=== PATIENT | male | born 1955 | race Caucasian/White ===

== ENCOUNTER → 2016-09-19 | Outpatient (CLI) | payer BC, OTHER ==
[~2016-09-19] VITALS: Ht 157.5 cm; Wt 71.1 kg
[~2016-09-19] MED LIST: ALOCRIL5 ML OP; CELEBREX 200 M200 MG PO; CLARITIN10 MG PO; CO Q-1010 MG PO; CONCERTA36 M1 PO; CONCERTA54 M1 PO; DECADRON PO; DEXAMETHASONE 44 M1 PO; FLEXERIL PO; GABAPENTIN 100100 MG PO; NASONEX17 GM NASAL; NEURONTIN 300300 M1 PO; OXYCODONE-ACET1 EAC2 PO; OXYCODONE-ACET1 EACH PO; PRILOSEC20 MG PO; RED YEAST RICE600 MG PO; SENNA LAX8.6 MG PO; TRAMADOL 50 MG50 MG PO; ZADITOR5 M1
--- NOTE | ~2016-09-19 | HPC ---
[facility] [address] [place] [address] PAIN MANAGEMENT CONSULTATION Name: KAYLIVIKTORIA Jeff Room #: REG ZAYDA Archana.#: [id number] Admission: 09/19/16 Attend Phys: Owen Live MD Discharge: Date of : 53 Report #: [id number] THIS REPORT FOR: //name// CC: Chris Live DATE OF SERVICE: 09/19/2016 Followup visit for chronic back pain with radiculopathy, status post L2-L3 fusion. The patient returns to the pain clinic today and is continuing to have pain in his back. It also radiates into the left flank and down into the right hip. He has responded favorably to transforaminal injections around his hardware. His last injection was performed about 3 months ago. We still have not found what I consider the ideal place to inject him. I have been using transforaminal approaches because of unilateral pain. One visit, however, he complained of right-sided pain, another on left. Today, most of his pain is on his left side and seems to emanate from the area around and just below his hardware radiating in a radicular fashion down into the hip. This would be around the L4 distribution into the anterolateral thigh. We also discussed medication at length. He has a history of addiction and so use of opioids is something that we discussed free and openly at each visit. We spent about 10 minutes today discussing addiction and his cautious use of opioids to control pain. He does get relief and I have agreed to provide him with oxycodone 5/325 three tablets a day. This would be a morphine milligram equivalent dose of 22 mg of oxycodone per day. We will continue to monitor closely. Today, his pain is 3, but it can be much more severe with twisting, turning, bending. He has trouble getting up and down out of a car and going up and downstairs. PHYSICAL EXAMINATION: Blood pressure 148/97, heart rate 52, respirations are 16. BMI is 28.7. He has pain across his low back with flexion, extension and rotational movements. He has positive straight leg raising bilaterally, worse on the left, radiating into the anterolateral thigh. Sensation and strength are normal. IMPRESSION: Chronic low back pain, status post lumbar fusion. RECOMMENDATIONS: 1. Transforaminal epidural injection on the left today, L3-L4. 2. Renew medication under terms of our opioid agreement. Safeguarding of all medication was discussed. [facility] [address] [place] [address] PAIN MANAGEMENT CONSULTATION Name: VIKTORIA MILAN Room #: REG CLI [facility]#: [id number] Admission: 09/19/16 Attend Phys: Owen Live MD Discharge: Date of : 53 Report #: [id number] 3. Continue exercises as we have discussed in the past including bicycle exercises when the weather improves. PROCEDURE: He was taken to fluoroscopic suite, placed prone, skin prepped with ChloraPrep. Skin was anesthetized in the left. A 20-gauge Tuohy epidural needle was advanced into the epidural space through the neural foramen at L3-L4. Omnipaque 1 mL demonstrated an epidural spread as well as some spread along the left L4 nerve root. It was then followed by 3 mL of 0.5% lidocaine mixed with 80 mg of triamcinolone. He tolerated the procedure well and was observed for 45 minutes and discharged. Followup visit planned as needed. In addition to the injection and the medication, I did provide him with some information for spinal cord stimulation. He may be a good candidate for that in the future. By: 1700 2149 Owen Live MD /nt
[2016-09-19 11:39] VITALS: BP 148/97
== END ==
LOC: PAIN 06:45
DX: G89.29 Other chronic pain (principal); M54.5 Low back pain; Z98.1 Arthrodesis status

== ENCOUNTER → 2016-12-15 | Outpatient (CLI) | payer BC, OTHER ==
[~2016-12-15] VITALS: Ht 160 cm; Wt 70.9 kg
[2016-12-15 10:05] VITALS: BP 127/82
== END | disposition home or self-care (01) ==
LOC: PAIN 06:37
DX: M54.16 Radiculopathy, lumbar region (principal); G89.29 Other chronic pain; M96.1 Postlaminectomy syndrome, not elsewhere classified; F11.20 Opioid dependence, uncomplicated; Z98.890 Other specified postprocedural states; Z91.040 Latex allergy status

== ENCOUNTER → 2017-02-13 | Outpatient (CLI) | payer BC, OTHER ==
[~2017-02-13] VITALS: Ht 160 cm; Wt 69.8 kg
[~2017-02-13] MED LIST changes: +CELEBREX 200 M200 M1 PO
--- NOTE | ~2017-02-13 | HPC ---
[facility] [place] [place] [address] PAIN MANAGEMENT CONSULTATION Name: KAYLIVIKTORIA Jeff Room #: REG ZAYDA Ish.#: [id number] Admission: 02/13/17 Attend Phys: Owen Live MD Discharge: Date of : 53 Report #: [id number] THIS REPORT FOR: //name// CC: LEILA Live DATE OF SERVICE: 02/13/2017 Followup visit for lumbar radiculopathy. Status post lumbar fusion. The patient returns to pain clinic today and would like transforaminal injection. He responded nicely to these injections. I have been providing him injections just below the level of his fusion at L3 using a transforaminal approach. Medication has spread nicely throughout the lateral recess on that side and helps with the pain as it is low back and radiates into his legs and also into the right flank. He is under an opioid agreement under strict terms with CDC guidelines. His medication is not duo today, but I did go ahead and provide him with this for an 8-week release prescription while he does not need to be seen back in the pain clinic for 3 months following the injection. He has done well with this combination and we carefully prescribed his medicines with his history of addictions. Today, he reports his pain score is 6-7. He has been very active on a vacation in [place] for 28 days, riding his bike up to 17 out of the 21 days. Pain is across his back, radiates through his left buttock; described as a tingling, sharp, stabbing Pain. It is worse in the morning. It is also aided by movement and stretching. PHYSICAL EXAMINATION: This is a sharp, 61-year-old pleasant, alert and oriented. Blood pressure 123/92, heart rate 68, respirations 27, walks with antalgic features. He has some slight curvature of the spine noted. There is tenderness over the scar. Pain radiates into the left flank along the iliac crest. IMPRESSION: 1. Chronic low back pain, post-laminectomy with fusion. 2. Lumbar radiculopathy. 3. Management of high risk medications under terms of an opioid agreement. PROCEDURE: Epidural steroid injection under fluoroscopic ____ guidance using a transforaminal approach at L3-L4. PROCEDURE NOTE: He was taken to fluoroscopic suite. [place] [address] PAIN MANAGEMENT CONSULTATION Name: VIKTROIA MILAN Room #: REG ZAYDA Colón#: [id number] Admission: 02/13/17 Attend Phys: Owen Live MD Discharge: Date of : 53 Report #: [id number] prepped with ChloraPrep. Skin anesthetized over L3-L4 neural foramen to the left of midline. Using triplanar fluoroscopic views, I advanced needle into the epidural space. No blood or CSF was aspirated. 1 mL of Omnipaque injected with excellent spread of dye observed into the epidural space. This was then followed by 3 mL of 0.5% lidocaine mixed with 80 mg of triamcinolone. He tolerated the procedure well. Pain was reduced to about 2 at discharge, about 75% improvement. He was discharged with a followup visit scheduled in 3 months for medication. By: [id number] Owen Live MD /nt
[2017-02-13 10:34] VITALS: BP 123/92
== END | disposition home or self-care (01) ==
LOC: PAIN 07:04
DX: M54.16 Radiculopathy, lumbar region (principal); M96.1 Postlaminectomy syndrome, not elsewhere classified

== ENCOUNTER → 2017-03-06 | Outpatient (CLI) | payer BC, OTHER ==
[~2017-03-06] VITALS: Ht 160 cm; Wt 71.0 kg
--- NOTE | ~2017-03-06 | HPC ---
[facility] [address] [place] [address] PAIN MANAGEMENT CONSULTATION Name: VIKTORIA MILAN Jeff [facility] [id number] Admission: 03/06/17 Attend Phys: Owen Live MD Discharge: Date of : 53 Report #: [id number] THIS REPORT FOR: //name// CC: Chris Live DATE OF REGISTRATION: 03/06/2017 Followup visit for lumbar radiculopathy and scoliosis, status post fusion of the lumbar spine. The patient returns to pain clinic today for further discussion regarding ongoing pain in the left lumbosacral region. He did not respond as favorably to his last epidural injection. Too early to repeat another injection. PHYSICAL EXAMINATION: He has localized tenderness along the scar from his previous surgery, pain radiates to abdomen and flank and into the left buttock. It does not radiate further. Straight leg raising is performed without difficulty. He appears fit and walks without antalgic features today. IMPRESSION: 1. Chronic low back pain, post-laminectomy with fusion. 2. Lumbar radiculopathy on the left L3-L4. 3. Management of high risk medication under terms of an opioid agreement. PLAN: He is here for consultation only today. I think his pain may have been exacerbated a bit by activities he was doing around the yard. 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 He is having to do more around the house. I placed him on Celebrex 200 mg once daily and I want him to take it every single day for the next 7 days as long as he can tolerate it and we will see if that helps with the inflammatory component. Much of this may be arthropathy. Follow up as needed. By: 1713 0557 Owen Live MD /nt
[2017-03-06 14:49] VITALS: BP 134/77
== END | disposition home or self-care (01) ==
LOC: PAIN 07:27
DX: M54.16 Radiculopathy, lumbar region (principal); G89.29 Other chronic pain; Z79.891 Long term (current) use of opiate analgesic; Z98.890 Other specified postprocedural states; Z91.040 Latex allergy status

== ENCOUNTER → 2017-07-27 | Outpatient (CLI) | payer BC, OTHER ==
[~2017-07-27] VITALS: Ht 160 cm; Wt 72.8 kg
[~2017-07-27] MED LIST changes: +BAYER BACK & B1 EACH PO; +COZAAR 50 MG TA50 M2 PO; +OXYCONTIN10 M1 PO; +PERCOCET PO; +SENOKOT-S TABL1 EACH PO
--- NOTE | ~2017-07-27 | HPC ---
[facility] [address] [place] [address] PAIN MANAGEMENT CONSULTATION Name: KAYLIVIKTORIA Jeff Room #: REG ZAYDA Archana.#: [id number] Admission: 07/27/17 Attend Phys: Owen Live MD Discharge: Date of : 53 Report #: [id number] THIS REPORT FOR: //name// CC: Chris Live DATE OF SERVICE: 07/27/2017 REASON FOR VISIT: Followup visit for chronic low back pain with radiculopathy, post-laminectomy syndrome with fusion. HISTORY OF PRESENT ILLNESS: The patient returns to pain clinic today for an epidural injection. I also provide him with medication under terms of written agreement. He has followed by Dr. Miranda on 05/22/2017 and received 3 months of medication, which will carry him through the end of this month. I provided him with additional prescriptions to allow him to return no earlier than 3 months if he does not need another injection. Continues to have pain that is radicular but radiates mostly to the left. He has a rotational scoliosis. Pain relief is generally pretty good for the first month or two after his injection and then gradually worsens necessitating an injection. He is not anxious to proceed with further surgery. Medications that he uses include Percocet 5/325 up to 3 times a day, taken for severe breakthrough pain. He has no significant side effects. Manages his medicine carefully. There was a long discussion through the chart, but his past use of substance with abuse and we are monitoring carefully. He has been very forthright and I believe that we were using medication appropriately under the circumstances. All medications reviewed and reconciled. He is on no blood thinners. ALLERGIES: To LATEX. PHYSICAL EXAMINATION: VITAL SIGNS: He is 5 feet 3 inches, 160 pounds with a BMI of 28.4. He appears fit. His blood pressure is 131/94, heart rate 86 and respirations 16. Pain intensity is 6-7/10. MUSCULOSKELETAL: Moves from sitting to standing position, ambulates easily. Curvature in his spine is easily noted to casual observe her. There is tenderness across the scar. Tenderness to the left of midline and extends down in a radicular pattern into the buttock. Straight leg raising is negative. Sensation is intact. FUNCTIONAL ASSESSMENT TOOL SCORES: 36/70. [address] [address] PAIN MANAGEMENT CONSULTATION Name: VIKTORIA MILAN Room #: REG MAKAYLALouie Colón#: [id number] Admission: 07/27/17 Attend Phys: Owen Live MD Discharge: Date of : 53 Report #: [id number] RISK ASSESSMENT TOOL: Provided his high risk of 12. IMPRESSION: 1. Chronic low back pain, post-laminectomy and fusion. 2. Lumbar radiculopathy. 3. Management of high risk medications under terms of written opioid agreement. PROCEDURE: He was taken to fluoroscopic suite for treatment where he was placed prone, skin was prepped with ChloraPrep. Skin was anesthetized to left of midline. A 22-gauge Tuohy epidural needle was gently advanced into the neural foramen at the L3-L4, just below its fusion. No blood or CSF was aspirated. A 1 mL of Omnipaque was injected and spread of dye was seen first along the nerve root and then into the epidural space was followed 5 x 3 mL of 0.5% lidocaine mixed with 80 mg of triamcinolone. He tolerated the procedure well, was observed for 45 minutes and discharged. Followup visit planned as needed in the future. <ELECTRONICALLY SIGNED> By: Owen Live MD 08/16/17 1640 [id number] [id number] Owen Live MD /nt
[2017-07-27 10:48] VITALS: BP 131/94
== END | disposition home or self-care (01) ==
LOC: PAIN 06:54
DX: M54.16 Radiculopathy, lumbar region (principal); M96.1 Postlaminectomy syndrome, not elsewhere classified; G89.29 Other chronic pain; Z88.8 Allergy status to other drugs, medicaments and biological substances

== ENCOUNTER → 2017-12-11 | Outpatient (CLI) | payer BC, OTHER ==
[~2017-12-11] VITALS: Ht 160 cm; Wt 70.3 kg
[~2017-12-11] MED LIST changes: -COZAAR 50 MG TA50 M2 PO; -OXYCONTIN10 M1 PO; -PERCOCET PO
--- NOTE | ~2017-12-11 | H ---
[facility] [place] [address] HISTORY AND PHYSICAL Name: KAYLIVIKTORIA Jeff Room #: [facility].#: [id number] Admission: 12/11/17 Attend Phys: Owen Live MD Discharge: Date of : 53 Report #: [id number] THIS REPORT FOR: //name// CC: Chris Live DATE OF SERVICE: 12/11/2017 REASON FOR VISIT: Followup visit for lumbar radiculopathy. HISTORY OF PRESENT ILLNESS: The patient returns to pain clinic today for repeat transforaminal epidural injection. He has been harder to get into the neural foramen below the level of his fusion. He has a trip coming up to [place] in the next 2-3 weeks. He will see his surgeon when he is there. He has continued scoliosis and pain that radiates into the left hip. He does not have much pain radiating down into his leg. It is possible that some of this may be spondylitic. Continues on Percocet 5/325 taking it 3 times a day for breakthrough pain. 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 PHYSICAL EXAMINATION: GENERAL: Moves from sitting to standing position independently. He is lean. VITAL SIGNS: Blood pressure 146/78, heart rate 55. MUSCULOSKELETAL: He has notable scoliosis of the lumbar spine and there is a scar from his previous L2-L3 fusion. Localized tenderness that radiates through the hip. Straight leg raising mildly reproduces pain into the hip. IMPRESSION: 1. Low back pain with radiculopathy and scoliosis. 2. Post-laminectomy syndrome and also with fusions, L2-L3. 3. Management of high risk medication. He does need medication today, only the injection. PROCEDURE: Lumbar transforaminal epidural injection, L3-L4 under fluoroscopic guidance. DESCRIPTION OF PROCEDURE: He was taken to fluoroscopic suite, placed prone, skin prepped with ChloraPrep. Skin anesthetized over the left neural foramen. A 22-gauge Tuohy epidural needle was advanced into the neural foramen. Multiple attempts were required until we got some spread within the epidural space. There were no lumbar or radicular paresthesias during needle placement. Injected 0.25 mL of Omnipaque to determine good spread and follow that with [address] [address] HISTORY AND PHYSICAL Name: KAYLIVIKTORIA Jeff Room #: REG [facility].#: [id number] Admission: 12/11/17 Attend Phys: Owen Live MD Discharge: Date of : 53 Report #: [id number] of 0.5% lidocaine mixed with 80 mg of triamcinolone. He tolerated the procedure well, was discharged. Follow up as needed. By: 1315 1333 Owen Live MD /nt
[2017-12-11 11:16] VITALS: BP 146/78
== END | disposition home or self-care (01) ==
LOC: PAIN 06:39
DX: M54.16 Radiculopathy, lumbar region (principal); M96.1 Postlaminectomy syndrome, not elsewhere classified; Z98.890 Other specified postprocedural states; Z79.899 Other long term (current) drug therapy; Z91.040 Latex allergy status; Z79.82 Long term (current) use of aspirin

== ENCOUNTER → 2018-04-16 | Outpatient (CLI) | payer BC, OTHER ==
[~2018-04-16] VITALS: Ht 160 cm; Wt 69.9 kg
[~2018-04-16] MED LIST changes: +COZAAR 50 MG TA50 M2 PO; +OXYCONTIN10 M1 PO; +PERCOCET PO
--- NOTE | ~2018-04-16 | HPC ---
[facility] [address] [place] [address] PAIN MANAGEMENT CONSULTATION Name: VIKTORIA MILAN Jeff Room #: REG [facility] Tash.#: [id number] Admission: 04/16/18 Attend Phys: Jillian Child Discharge: Date of : 53 Report #: [id number] THIS REPORT FOR: //name// CC: Jillian Live DATE OF SERVICE: 04/16/2018 REASON FOR VISIT: Followup today visit for low back pain, post-laminectomy and fusion. HISTORY OF PRESENT ILLNESS: The patient returns today for refill of his medication management. He tells me that the last injection that he had was helpful, but his pain has been returning, it has been a distraction he calls. He did not rate his pain score other than a distraction. He tells me it is in his lower back, left buttock, radiating into his left hip, not down his legs. Legs feel strong. He tells me that it feels like he has congestion in his lower back. He is not sleeping well and therefore, using 3-1/2 of his Percocet 5/325 a day, which is a slight increase. He did have a recent MRI in [place], [place] and has seen Dr. Banks within the last few weeks. According to the patient, Dr. Banks did discuss a very major surgery with him. The patient was hopeful that Dr. Live had spoken with Dr. Banks, but it has not happened at present time. Dr. Live did come and see the patient also today. We have no reports of the MRI that the patient did have in [place], [place]. The patient tells me he rides a bike daily. He does Pilates. He works out at home. He does walk, but the things that aggravate him the most are doing dishes or reaching into his closet, even sometimes sitting, just having to change positions frequently. ALLERGIES: LATEX. CURRENT LIST OF MEDICATIONS: Percocet 5/325, losartan, aspirin, Senokot, ____ Concerta, Nasonex and Claritin. PQRS: 1. History of arthritis in his upper and lower extremities. Denies rheumatoid arthritis. 2. Height is 5 feet 3 inches, weight 154. BMI is 27.3. 3. Vital signs: Blood pressure is 143/83, pulse is 53, oxygen sat is 97%. 4. Pain intensity: He states it as a distraction, no number given. 5. Fall risk: Denies dizziness, does not need help walking or standing and has not fallen in the last 3 months. 6. Denies blood thinners. 7. No History of hypertension. [facility] [address] [place] [address] PAIN MANAGEMENT CONSULTATION Name: VIKTORIA MILAN Room #: REG ZAYDA Colón#: [id number] Admission: 04/16/18 Attend Phys: Jillian Child Discharge: Date of : 53 Report #: [id number] 8. Opioid therapy greater than 6 weeks and opioid contract is on the chart. 9. He is a high risk for his risk assessment tool. 10. His functional assessment is 36/70. 11. No recreational drug use. He is not a smoker and is not drinking alcohol. We checked [place] and [place] PDMP. [place] is appropriate for his fills, slightly early today. The patient tells us he is taking 3-1/2 pills a day instead of 3, fills only from Dr. Owen [facility]. The patient does tell me he safeguards all of his medicines. PHYSICAL EXAMINATION: The patient is alert and oriented without signs of overmedication. He has mild tenderness in his lower back, especially on the right lower side there is a scar from previous fusion. Straight leg raising today is mild positively on the left. Strength is 5/5 to be judged bilaterally. Slight scoliotic changes are noted on his spine. He does have some mild pain with flexion and extension. The patient does move from standing to sitting without any difficulty. IMPRESSION: 1. Low back pain with radiculopathy and scoliosis. 2. Post-laminectomy with fusion. 3. Management of high risk medications under opioid written agreement. PLAN: 1. We reviewed his opioid agreement today and the CDC guidelines. The patient states he is taking 3-1/2 Percocet 5/325 a day. This is well below the MME guidelines at 22 a day, though the patient states he is having increased discomfort and pressure, congested area in his lower back. He was hopeful for an increase of his Percocet to possibly 105 pills a month from 90. Dr. Owen Live consulted with the patient and myself. We have elected to start a long-acting opioid, hopeful to give the patient better pain control, so he is able to sleep better at night and function better during the day. Discussed many options of medicines, but OxyContin 10 mg 1 in the morning and 1 in the evening will be started. The patient will be able to have Percocet 5/325 1-2 5/325 pills if needed throughout the day for additional breakthrough pain. The patient was agreeable with this plan. The patient will try this medicine for 1 month. If this is helpful, we will give him followup prescriptions for #2 and #3 numbers and be seen again in May. 2. The patient is going to be leaving for a trip in [place] in June and would like an epidural prior to that in late May. It was discussed that Dr. Live will repeat an injection in May, the patient is to schedule that at his convenience. 3. Dr. Live did discuss spinal cord stimulation versus intrathecal pump therapy. I think that the patient may be beneficial to have an intrathecal pump placed, but at this time, we will try the long-acting OxyContin to see if that gives the patient better pain control and relief on a more steady state [address] [address] PAIN MANAGEMENT CONSULTATION Name: VIKTORIA MILAN Room #: REG ZAYDA Colón#: [id number] Admission: 04/16/18 Attend Phys: Jillian Child Discharge: Date of : 53 Report #: [id number] throughout the day. The patient is agreeable with this plan. Uncertain if he wants to have any major surgeries done at this time. 4. The patient will follow up in May as stated above for an injection and refill of medications. The patient was seen in collaboration with Dr. Owen Live today. <ELECTRONICALLY SIGNED> By: Jillian Child 04/17/18 0728 1547 0010 Jillian Child /nt
[2018-04-16 14:47] VITALS: BP 143/83
== END ==
LOC: PAIN 06:19
DX: M54.16 Radiculopathy, lumbar region (principal); M41.86 Other forms of scoliosis, lumbar region; M96.1 Postlaminectomy syndrome, not elsewhere classified; M43.26 Fusion of spine, lumbar region; Z79.899 Other long term (current) drug therapy; Z79.891 Long term (current) use of opiate analgesic

== ENCOUNTER → 2018-06-15 | Outpatient (CLI) | payer BC, OTHER ==
[~2018-06-15] VITALS: Ht 160 cm; Wt 69.9 kg
[~2018-06-15] MED LIST changes: +CRESTOR20 MG PO
[2018-06-15 12:50] VITALS: BP 143/86
--- NOTE | 2018-06-15 12:56 | NUR ---
Pain Clinic Assessment: 1. History of Osteoarthritis: Right Lower Extremity Right Upper Extremity History of Rheumatoid Arthritis: Not Applicable 2. Height: 5 ft. 3 in. 160.0 cm. Weight: 154.0 lb. oz. 69.854 kg. Patient's BMI: 27.3 3. Vital Signs: BP: 143/86 Pulse: 54 Resp: 16 Temp: 02 Sat: 98 ECG Mon: 4. Pain Intensity: 6 5. Fall Risk: Dizziness: N Needs help standing or walking: N Fallen in the last 3 months: N Fall risk comments: 6. Patient on Blood Thinner: None 7. History of Hypertension: N 8. Opioid Therapy greater than 6 weeks: Y Opiate Contract Signed: 11/30/15 9. Risk Assessment Tool Provided: HIGH RISK 12 10. Functional Assessment Tool: 11. Recreational Drug Use: Never Drug Type: Tobacco Use: Never Smoker Tobacco Type: Amount or Packs/day: How Many Years: Alcohol Use: No Frequency: Quant:
--- NOTE | 2018-06-20 11:18 | HPC ---
[facility] [place] [address] PAIN MANAGEMENT CONSULTATION Name: KAYLIVIKTORIA Jeff Room #: REG ZAYDA [facility].#: [id number] Admission: 06/15/18 Attend Phys: Owen Live MD Discharge: Date of : 53 Report #: [id number] THIS REPORT FOR: //name// CC: Chris Live DATE OF SERVICE: 06/15/2018 HISTORY OF PRESENT ILLNESS: Followup visit for ongoing left lumbar radiculopathy status post laminectomy and fusion. The patient returns to the pain clinic today for a left transforaminal epidural injection. I have previously injected him at L3-L4 just below the level of his fusion. Found that neural foramen difficult to enter. I told him at last visit that we would try to provide an L4-L5 transforaminal injection on the left when we repeat the injection, now he is a higher amount of IM to extend up into the scar tissue as well as cover the L4 and L5 nerve roots below the level of fusion. He is here today for that injection. He has an upcoming trip to [place] for a safari! MEDICATIONS: Reviewed. He is on OxyContin 10 mg b.i.d. and oxycodone 5/325 b.i.d. as needed for breakthrough pain. These are helpful and effective. His use of opioid medications is well documented through his record and will keep a close eye on those. I provided him with medications for 2 weeks. 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 PHYSICAL EXAMINATION: GENERAL: Today, he is pleasant, alert and oriented. VITAL SIGNS: Blood pressure is 143/86, heart rate 54. MUSCULOSKELETAL: He moves easily from sitting to standing position. His gait is stable. He is not a fall risk. He has minimum pain with flexion and extension. Straight leg raising does reproduce pain into the leg following an L4-L5 distribution. Pain intensity is a 6-7/10. Sensation is intact. Scar from previous laminectomy is noted in the mid lumbar spine to lower thoracic spine. IMPRESSION: 1. Chronic low back pain with radiculopathy on the left. Rotational scoliosis. 2. Failed back syndrome, post-laminectomy syndrome. 3. Management of high risk medications under an opioid agreement. PLAN: Procedure today is left L4-L5 transforaminal epidural injection under fluoroscopic guidance. [address] [address] PAIN MANAGEMENT CONSULTATION Name: KAYLIVIKTORIA Jeff Room #: REG CLI [facility]#: [id number] Admission: 06/15/18 Attend Phys: Owen Live MD Discharge: Date of : 53 Report #: [id number] DESCRIPTION OF PROCEDURE: He was taken to fluoroscopic suite for the procedure, placed prone, skin prepped with ChloraPrep. Skin anesthetized over the L4-L5 neural foramen on the left. Using triplanar fluoroscopic views, I carefully advanced the needle in the neural foramen and 1 mL of Omnipaque injected to demonstrate a good epidural spread along with some spread along the L4 nerve root. I then injected a total of 6 mL of 0.5% lidocaine mixed with 80 mg of triamcinolone. He tolerated the procedure well. The additional volume seemed to cover a broader dermatome. His pain score remained, however, 4/10, at discharge. We will see how he does on his safari. One additional prescription was written for his pain medication to extend him to 8 weeks and I will see him back in the pain clinic in July after his trip. <ELECTRONICALLY SIGNED> By: Owen Live MD 06/20/18 1118 [id number] Owen Live MD /nt
== END | disposition home or self-care (01) ==
LOC: PAIN 09:58
DX: M54.16 Radiculopathy, lumbar region (principal); G89.29 Other chronic pain; M96.1 Postlaminectomy syndrome, not elsewhere classified; Z98.1 Arthrodesis status; Z79.899 Other long term (current) drug therapy; Z98.890 Other specified postprocedural states; Z88.8 Allergy status to other drugs, medicaments and biological substances; Z91.040 Latex allergy status; Z79.82 Long term (current) use of aspirin

== ENCOUNTER → 2018-07-24 | Outpatient (CLI) | payer BC, OTHER ==
[~2018-07-24] VITALS: Ht 154.9 cm; Wt 68.5 kg
[~2018-07-24] MED LIST changes: +OXYCODONE HCL E10 MG PO
[2018-07-24 09:34] VITALS: BP 143/86
--- NOTE | 2018-07-24 09:40 | NUR ---
Pain Clinic Assessment: 1. History of Osteoarthritis: Right Lower Extremity Right Upper Extremity RIGHT KNEE RIGHT HAND History of Rheumatoid Arthritis: Not Applicable 2. Height: 5 ft. 1 in. 154.9 cm. Weight: 151.0 lb. oz. 68.493 kg. Patient's BMI: 28.5 3. Vital Signs: BP: 143/86 Pulse: 67 Resp: 16 Temp: 02 Sat: 97 ECG Mon: 4. Pain Intensity: 6-AVG,3-NOW SITTING 5. Fall Risk: Dizziness: N Needs help standing or walking: N Fallen in the last 3 months: N Fall risk comments: 6. Patient on Blood Thinner: None 7. History of Hypertension: N 8. Opioid Therapy greater than 6 weeks: Y Opiate Contract Signed: 11/30/15 9. Risk Assessment Tool Provided: HIGH RISK 12 10. Functional Assessment Tool: 11. Recreational Drug Use: Never Drug Type: Tobacco Use: Never Smoker Tobacco Type: Amount or Packs/day: How Many Years: Alcohol Use: No Frequency: Quant:
--- NOTE | 2018-07-25 07:19 | HPC ---
[facility] [address] [place] [address] PAIN MANAGEMENT CONSULTATION Name: KAYLIVIKTORIA Jeff Room #: REG ZAYDA [facility].#: [id number] Admission: 07/24/18 Attend Phys: Jillian Child Discharge: Date of : 53 Report #: [id number] THIS REPORT FOR: //name// CC: Jillian Page DATE OF SERVICE: 07/24/2018 CHIEF COMPLAINT: Low back pain, post-laminectomy and fusion. HISTORY OF PRESENT ILLNESS: The patient returns to the pain clinic today for refill of his medication. He tells me that since he has switched to OxyContin 10 mg from his short-acting he tells me that his overall pain relief is significantly better. He tells me that he has a pain score average of 3 currently and 6 is his average daily pain. He tells me his pain is mostly when he is doing lots of activity or sitting in one position for too long or becoming too tired. He says stretching and activity make it better in his lower back, left buttock and left hip. He did have a transforaminal injection in May from Dr. Owen Live. He tells me he was at least 50% better for at least 2 weeks maybe slightly longer. He was able to go on a safari in [facility] and be very active, but it did require lots of sitting. He said so maybe overall it was slightly higher than 50%, but unsure since he was so active, but he said it gave him much better relief than at previous injections at the higher level where he had been getting them. The patient would like a refill of his medications today. ALLERGIES: LATEX. CURRENT MEDICATIONS: Oxycodone 5/325 half to one tablet twice a day, OxyContin 10 mg twice a day, Crestor 20 mg daily, losartan 50 mg daily, Grisel Back and Body caplet daily, Zaditor drops daily, Nasonex as needed and Claritin daily. PQRS: 1. He has a history of osteoarthritis in his upper and lower extremities. Denies rheumatoid arthritis. 2. Height is 5 feet 3 inches, weight is 151 and BMI is 27. Vital signs: 143/86, pulse is 67, respirations 16 and oxygen sat is 97%. 3. Pain score is an average of 6/10. 4. Fall risk. He denies dizziness. Does not need help walking or standing. He has not fallen in the last 3 months. 5. The patient is not on any blood thinner. He does not have a history of hypertension. 6. Opiate therapy is greater than 6 weeks; therefore, an opiate signed contract is on the chart. His risk assessment tool is high. His functional assessment is 36/70. Recreational drug use, he denies. He is not a smoker and does not drink alcohol. Did check the prescription monitoring system[place] [address] PAIN MANAGEMENT CONSULTATION Name: VIKTORIA MILAN Room #: REG [facility] Katarzyna#: [id number] Admission: 07/24/18 Attend Phys: Jillian Child Discharge: Date of : 53 Report #: [id number] filling appropriately from Dr. Owen Live with his current medications at one pharmacy. There is not a drug screen I noticed on the chart in the last several years. I did put a note for it to be done in the next visit. The patient tells me he does safeguard his medications. PHYSICAL EXAMINATION: GENERAL: This is a well-developed, well-nourished, well-hydrated 62-year-old gentleman who appears his stated age. He is alert and orientated. HEENT: Normocephalic and atraumatic. Extraocular eye muscles are intact. Mucous membranes are moist. MUSCULOSKELETAL: He easily moves from sitting to standing. His gait is stable. He has lower muscle strength judged to be 5/5 symmetrical in both lower extremities. We reviewed the fact that opiate medications are being used to provide analgesia adequate to support activities of daily living, not attempting to achieve a specific pain score on the 0-10 Visual Analog Scale. The current opiate medications are providing sufficient analgesia to allow the patient to participate in activities of daily living. The patient is not exhibiting any aberrant behavior suggestive of drug diversion. The patient is not having any adverse reactions to medications. The patient is not suffering from daytime somnolence or mental acuity changes. The patient is managing opiate-induced constipation with appropriate [id number] agents and dietary considerations. The patient was counseled on concern for caution with operating a motor vehicle while using opiate medications. A physical exam was performed and the patient's functional status was evaluated. All patients with back pain were advised against the bed rest greater than 4 days and were advised to return to normal activities. Pain score assessment was noted and the treatment plan was reviewed with the patient. All current medications, both prescribed and OTC were reviewed and reconciled on the electronic medical record. Tobacco screening was accomplished and smoking cessation was advised when indicated. BMI was noted and diet/exercise modification was recommended for all patients following outside normal parameters. I reviewed with the patient today their responsibilities to safeguard prescription medications, reviewed their responsibility to utilize medications only as prescribed by the physician. They are to seek and receive pain medications only from 1 physician group ( [facility]). They are to use 1 pharmacy and keep the clinic informed if they change pharmacies. Their responsibilities include making followup visits in a timely fashion and to avoid abrupt discontinuation of medication usage. Their responsibilities further include bringing their medications (bottles from the pharmacy with residual pills) to the visit for possible confirmation of pill counts and the patient understands it is their responsibility to submit to random drug screens to [address] [address] PAIN MANAGEMENT CONSULTATION Name: KAYLIVIKTORIA Jeff Room #: REG ZAYDA [facility].#: [id number] Admission: 07/24/18 Attend Phys: Jillian Child Discharge: Date of : 53 Report #: [id number] ensure both that the medications prescribed are present, and that no other controlled substances are present. All prescriptions provided today were generated electronically. IMPRESSION: 1. Chronic low back pain with radiculopathy. 2. Rotational scoliosis. 3. Failed back syndrome, post-laminectomy syndrome. 4. Management of high risk medications under terms of written opioid agreement. PLAN: 1. We discussed treatment options with the patient today. He tells me that overall the OxyContin has been helping him with his pain and refills were given today of his OxyContin 10 mg, #60 to be filled today, 4 and 8 week and second medication oxycodone 5/325 the patient takes twice a day, quantity 60 to fill today, 4 and 8 week: 2. The patient will return for followup visit in 3 months for medication management or if not sooner for injection if needed by Dr. Owen Live. The patient was seen today under the direction and collaboration of Dr. Behzad Miranda. <ELECTRONICALLY SIGNED> By: Jillian Cihld 07/25/18 07 1009 56 Jillian Child /nt
== END ==
LOC: PAIN 07-23 13:54
DX: M54.16 Radiculopathy, lumbar region (principal); M41.86 Other forms of scoliosis, lumbar region; Z79.891 Long term (current) use of opiate analgesic; Z79.899 Other long term (current) drug therapy

== ENCOUNTER → 2018-11-05 | Outpatient (CLI) | payer BC, OTHER ==
[~2018-11-05] VITALS: Ht 154.9 cm; Wt 69.1 kg
[~2018-11-05] MED LIST changes: +INDERAL 20 MG T20 M1 PO; +PHENERGAN 25 MG25 M1
[2018-11-05 10:34] VITALS: BP 116/76
--- NOTE | 2018-11-05 11:02 | NUR ---
Pain Clinic Assessment: 1. History of Osteoarthritis: Right Lower Extremity Right Upper Extremity RIGHT KNEE RIGHT HAND History of Rheumatoid Arthritis: Not Applicable 2. Height: 5 ft. 1 in. 154.9 cm. Weight: 152.4 lb. oz. 69.128 kg. Patient's BMI: 28.8 3. Vital Signs: BP: 116/76 Pulse: 57 Resp: 16 Temp: 02 Sat: 98 ECG Mon: 4. Pain Intensity: 4 5. Fall Risk: Dizziness: Y Needs help standing or walking: N Fallen in the last 3 months: N Fall risk comments: 6. Patient on Blood Thinner: None 7. History of Hypertension: N 8. Opioid Therapy greater than 6 weeks: Y Opiate Contract Signed: 11/30/15 9. Risk Assessment Tool Provided: HIGH RISK 12 10. Functional Assessment Tool: 11. Recreational Drug Use: Never Drug Type: Tobacco Use: Never Smoker Tobacco Type: Amount or Packs/day: How Many Years: Alcohol Use: No Frequency: Quant:
--- NOTE | 2018-11-06 09:03 | HPC ---
[facility] [address] [place] [address] PAIN MANAGEMENT CONSULTATION Name: KAYLIVIKTORIA Jeff [id number] Admission: 11/05/18 ������������������ Attend Phys: Jillian Child Discharge: ������������������ Date of : 53 Report #: [id number] THIS REPORT FOR: //name// CC: Jillian Child Chris Palmerp DATE OF SERVICE: 11/05/2018 CHIEF COMPLAINT: Low back pain, post-laminectomy with fusion. HISTORY OF PRESENT ILLNESS: This is a pleasant 62-year-old gentleman who returns to the Pain Clinic today for refill of his medications. He tells me that his pain score is a 4 out of 10, doing fairly well on his current medication regimen. He tells me that he has some pain in his buttock that does radiate into his left hip today as well as his ongoing low back pain. He tells me that it is a sharp, throbbing, tingly feeling that is worse with activity or becoming too tired. His medications are very helpful as well as stretching. He denies any problems with constipation or daytime sleepiness. The patient tells me he has been having some ongoing vertigo issues that have been ongoing for about the last month. He has seen an ENT doctor and ruled out any problems there. He is going to have an MRI of his brain next week and then hopefully see a neurologist. He has adjusted some of his medications, added propranolol and some Phenergan with this nausea that he has from the vertigo, which ultimately does cause the headache. He tells me he had this problem about 12 years ago and then again about 8 years ago. It did resolve over time within a month or two and the patient feels that will happen again that he would like to know the cause of this. The patient tells me that he is going to go to [place] in December. He was wanting to have another epidural from Dr. Live prior to that trip. He tells me he had an injection last year before he went to [facility] and it was very helpful and aiding him to be more active on his vacation. The patient tells me he knows he will be hiking and biking and thinks that an injection would be beneficial. ALLERGIES: ADHESIVE AND LATEX. CURRENT MEDICATIONS: Propranolol 20 mg daily, promethazine p.r.n., oxycodone 5/325 1-2 tablets a day, OxyContin 10 mg b.i.d., Crestor 20 mg weekly, Cozaar 50 mg daily, Grisel Back and Body caplets daily, Zaditor drops daily, Nasonex as needed and Claritin daily. PQRS: 1. He has a history of osteoarthritis of his upper and lower extremities as well as in his lumbar spine. Denies any rheumatoid arthritis. 2. Height is 5 feet 1 inch, weight is 152, BMI is 28[place] [address] PAIN MANAGEMENT CONSULTATION Name: VIKTORIA MILAN Room #: REG [facility]#: [id number] Admission: 11/05/18 ������������������ Attend Phys: Jillian Child Discharge: ������������������ Date of : 53 Report #: [id number] 3. Vital signs: 116/76, pulse is 57, respirations 16, and oxygen sat is 98. 4. Pain score is 4/10. 5. Has vertigo issues, does not need help walking or standing, has not fallen in the last 3 months. 6. The patient is not on any blood thinners. He does not have a history of hypertension. 7. Opioid therapy is greater than 6 weeks. Therefore, an opioid signed contract is on the chart. His risk assessment tool is high. His functional assessment is 36/70. 8. Recreational drug use, he denies. He is not a smoker and does not drink alcohol. We did check the prescription monitoring system. The patient is filling appropriately for his medication and is due for his meds today. There is a drug screen in the past on his chart and we will check one in the future. PHYSICAL EXAMINATION: GENERAL: This is a well-developed, well-nourished, well-hydrated 62-year-old gentleman, who appears his stated age, placing his current pain score at 4/10 today. HEENT: Normocephalic, atraumatic. Extraocular eye muscles are intact. Mucous membranes are moist. MUSCULOSKELETAL: He moves from sitting to standing without difficulty. His gait is stable. Straight leg raising reproduces pain following the L4-L5 distribution. Sensation is intact. He has a scar that is present from his previous laminectomy in his lumbar spine. His lower extremity strength judged to be 5/5 in all major muscle groups. We reviewed the fact that opiate medications are being used to provide analgesia adequate to support activities of daily living, not attempting to achieve a specific pain score on the 0-10 Visual Analog Scale. The current opiate medications are providing sufficient analgesia to allow the patient to participate in activities of daily living. The patient is not exhibiting any aberrant behavior suggestive of drug diversion. The patient is not having any adverse reactions to medications. The patient is not suffering from daytime somnolence or mental acuity changes. The patient is managing opiate-induced constipation with appropriate kglt-aaf-dfwqybm agents and dietary considerations. The patient was counseled on concern for caution with operating a motor vehicle while using opiate medications. A physical exam was performed and the patient's functional status was evaluated. All patients with back pain were advised against the bed rest greater than 4 days and were advised to return to normal activities. Pain score assessment was noted and the treatment plan was reviewed with the patient. All current medications, both prescribed and OTC were reviewed and reconciled on the electronic medical record. Tobacco screening was accomplished and smoking [facility] [address] [place] [address] PAIN MANAGEMENT CONSULTATION Name: VIKTORIA MILAN Room #: REG [facility]#: [id number] Admission: 11/05/18 ������������������ Attend Phys: Jillian Child Discharge: ������������������ Date of : 53 Report #: [id number] cessation was advised when indicated. BMI was noted and diet/exercise modification was recommended for all patients following outside normal parameters. I reviewed with the patient today their responsibilities to safeguard prescription medications, reviewed their responsibility to utilize medications only as prescribed by the physician. They are to seek and receive pain medications only from 1 physician group ( [facility]). They are to use 1 pharmacy and keep the clinic informed if they change pharmacies. Their responsibilities include making followup visits in a timely fashion and to avoid abrupt discontinuation of medication usage. Their responsibilities further include bringing their medications (bottles from the pharmacy with residual pills) to the visit for possible confirmation of pill counts and the patient understands it is their responsibility to submit to random drug screens to ensure both that the medications prescribed are present, and that no other controlled substances are present. All prescriptions provided today were generated electronically. IMPRESSION: 1. Chronic low back pain with radiculopathy. 2. Rotational scoliosis. 3. Failed back syndrome, post-laminectomy syndrome. 4. Management of high-risk medications under terms of written opioid agreement. 5. Vertigo. PLAN: 1. We discussed treatment options with the patient today. The patient tells me that he is doing quite well on his current medication regimen. He actually feels like he does not need 3 months of his short-acting medications and requesting only 2 months of that and 3 months of his long acting. According to the CDC guidelines, the patient's morphine milliequivalent is between 35 and 45 depending on his oxycodone use. This is well below the CDC guidelines. Scripts given today for OxyContin 10 mg b.i.d., #60 for today and 4-week release and today for an 8-week release and oxycodone 5/325, #60 for today and 4-week release. 2. We did discuss possible left transforaminal steroid injection by Dr. Owen Live. The patient has found this very beneficial in the past. The patient is getting ready to go to [place] and will be very active. I believe that a left transforaminal at the L4-L5 epidural space will be helpful to cover his pain that he is experiencing in the L4-L5 dermatomal distribution. His pain is all on the left and does not radiate down his right leg. Appointment will be made for that in late November prior to his vacation. [address] [address] PAIN MANAGEMENT CONSULTATION Name: VIKTORIA MILAN Room #: REG ZAYDA Colón#: [id number] Admission: 11/05/18 ������������������ Attend Phys: Jillian Child Discharge: ������������������ Date of : 53 Report #: [id number] Owen Live did come and see the patient and collaborated care as well today. ��������������������������������������������� <ELECTRONICALLY SIGNED> ���������������������������������������� By: Jillian Child ��������������������������������������������� 11/06/18 0903 [id number] Jillian Child /nt
== END ==
LOC: PAIN 06:45
DX: G89.29 Other chronic pain (principal); M54.16 Radiculopathy, lumbar region; M96.1 Postlaminectomy syndrome, not elsewhere classified; Z91.040 Latex allergy status; Z91.09 Other allergy status, other than to drugs and biological substances; Z79.899 Other long term (current) drug therapy; Z79.891 Long term (current) use of opiate analgesic

== ENCOUNTER → 2018-12-13 | Outpatient (CLI) | payer BC, OTHER ==
[~2018-12-13] VITALS: Ht 162.6 cm; Wt 69.3 kg
[~2018-12-13] MED LIST changes: +CLORAZEPATE D3.75 M2 PO; +EXCEDRIN CAPLE1 EACH PO; +TRIAMCINOLONE A80 G2 TOP; +VYVANSE20 MG PO
[2018-12-13 09:14] VITALS: BP 112/69
--- NOTE | 2018-12-13 09:32 | NUR ---
Pain Clinic Assessment: 1. History of Osteoarthritis: Right Lower Extremity Right Upper Extremity RIGHT KNEE RIGHT HAND History of Rheumatoid Arthritis: Not Applicable 2. Height: 5 ft. 4 in. 162.6 cm. Weight: 152.8 lb. oz. 69.310 kg. Patient's BMI: 26.2 3. Vital Signs: BP: 112/69 Pulse: 54 Resp: 14 Temp: 02 Sat: 97 ECG Mon: 4. Pain Intensity: 6-7 5. Fall Risk: Dizziness: Y Needs help standing or walking: N Fallen in the last 3 months: N Fall risk comments: 6. Patient on Blood Thinner: None 7. History of Hypertension: N 8. Opioid Therapy greater than 6 weeks: Y Opiate Contract Signed: 11/30/15 9. Risk Assessment Tool Provided: HIGH RISK 12 10. Functional Assessment Tool: 11. Recreational Drug Use: Never Drug Type: Tobacco Use: Never Smoker Tobacco Type: Amount or Packs/day: How Many Years: Alcohol Use: No Frequency: Quant:
--- NOTE | 2018-12-18 17:25 | HPC ---
[address] [place] [address] PAIN MANAGEMENT CONSULTATION Name: KAYLIVIKTORIA Jeff Room #: REG [facility].#: [id number] Admission: 12/13/18 ������������������ Attend Phys: Owen Live MD Discharge: ������������������ Date of : 53 Report #: [id number] THIS REPORT FOR: //name// CC: Chris Live DATE OF SERVICE: 12/13/2018 Followup visit for chronic low back pain with radiculopathy on the left, status post laminectomy and fusion. The patient returns to pain clinic today for a left transforaminal epidural injection. I performed his last injection in 05/2018 just before he took off for a long trip to [place]. The trip went well. He continues to get response from these injections. He reports the last injection that we performed was very helpful. We performed a bit lower below his fusion, and I used a larger volume of injectate which I think covered a broader area, providing more sustained relief throughout the epidural space. He is on a medication agreement, was seen recently by nurse practitioner, Jillian Child, who provided the medications. I saw him briefly at that visit, and we scheduled him for this injection. All medications have been reviewed and reconciled. PHYSICAL EXAMINATION: Pleasant 63-year-old gentleman. Moves from sitting to standing position, ambulates with mild antalgic features. There is a scar from previous surgery, and there is scoliosis noted throughout the thoracolumbar spine. He has pain with flexion and extension. Positive straight leg raising discomfort. IMPRESSION: 1. Low back pain with radiculopathy and scoliosis, left L3-L4 distribution. 2. Failed back syndrome. RECOMMENDATIONS: Left L3-L4 transforaminal epidural injection under fluoroscopic guidance. PROCEDURE: The patient was taken to fluoroscopic suite for treatment, placed prone, skin prepped with ChloraPrep. Skin anesthetized over the L3-L4 neural foramen. Using triplanar fluoroscopic views, I advanced the needle into the epidural space. A 1 mL of Omnipaque was injected and excellent spread of dye observed into the epidural space, followed by 3 mL of 0.5% lidocaine mixed with 80 mg of triamcinolone. He tolerated the procedure well. Pain was reduced to [address] [address] PAIN MANAGEMENT CONSULTATION Name: VIKTORIA MILAN Room [facility] [id number] Admission: 12/13/18 ������������������ Attend Phys: Owen Live MD Discharge: ������������������ Date of : 53 Report #: [id number] Followup visit planned as needed for further injections. ��������������������������������������������� <ELECTRONICALLY SIGNED> ���������������������������������������� By: Owen Live MD ��������������������������������������������� 12/18/18 1725 1159 1531 Owen Live MD /nt
== END | disposition home or self-care (01) ==
LOC: PAIN 06:49
DX: M54.16 Radiculopathy, lumbar region (principal); M96.1 Postlaminectomy syndrome, not elsewhere classified; G89.29 Other chronic pain; Z98.890 Other specified postprocedural states; Z91.040 Latex allergy status; Z79.899 Other long term (current) drug therapy

== ENCOUNTER → 2019-02-04 | Outpatient (CLI) | payer BC, OTHER ==
[~2019-02-04] VITALS: Ht 162.6 cm; Wt 66.9 kg
[~2019-02-04] MED LIST changes: +NORTRIPTYLINE H10 M1 PO
[2019-02-04 09:15] VITALS: BP 132/73
--- NOTE | 2019-02-04 09:16 | NUR ---
Pain Clinic Assessment: 1. History of Osteoarthritis: Right Lower Extremity Right Upper Extremity RIGHT KNEE RIGHT HAND History of Rheumatoid Arthritis: Not Applicable 2. Height: 5 ft. 4 in. 162.6 cm. Weight: 147.4 lb. oz. 66.860 kg. Patient's BMI: 25.3 3. Vital Signs: BP: 132/73 Pulse: 69 Resp: 14 Temp: 02 Sat: 96 ECG Mon: 4. Pain Intensity: 0 NOW 5. Fall Risk: Dizziness: N Needs help standing or walking: N Fallen in the last 3 months: N Fall risk comments: 6. Patient on Blood Thinner: None 7. History of Hypertension: N 8. Opioid Therapy greater than 6 weeks: Y Opiate Contract Signed: 11/30/15 9. Risk Assessment Tool Provided: HIGH RISK 12 10. Functional Assessment Tool: 11. Recreational Drug Use: Never Drug Type: Tobacco Use: Never Smoker Tobacco Type: Amount or Packs/day: How Many Years: Alcohol Use: No Frequency: Quant:
--- NOTE | 2019-02-05 08:11 | HPC ---
[facility] [address] [address] PAIN MANAGEMENT CONSULTATION Name: VIKTORIA MILAN Jeff Room #: REG [facility] Katarzyna#: [id number] Admission: 02/04/19 Attend Phys: Jillian Child Discharge: Date of : 53 Report #: [id number] THIS REPORT FOR: //name// CC: Jillian Child Chris Palmerp DATE OF SERVICE: 02/04/2019 CHIEF COMPLAINT: Chronic low back pain with radiculopathy, status post laminectomy and fusion. HISTORY OF PRESENT ILLNESS: This is a very pleasant 63-year-old gentleman who returns to the pain clinic today for refill of his medications, rating his current pain at 0/10 in his lower back, left buttock and left hip. He tells me when he does have pain, it is a sharp, throbbing tingly pain, mostly with activity or bending, though activity does help it as well as stretching and as well as his medications. He denies any problems with constipation. The patient recently returned from [place] where he did enjoy biking and was fairly active. He did follow up with a [facility] out there. They informed him that his scoliosis has not changed since his last yearly visit there. The patient is having some cervical issues that he will obtain MRI and bring it to his next appointment. Today, the patient would like refill of his medications. ALLERGIES: LATEX AND ADHESIVE. CURRENT MEDICATIONS: Nortriptyline 20 mg at bedtime, Vyvanse 20 mg daily, Clorazepate p.r.n., oxycodone 5/325 b.i.d. p.r.n., OxyContin 10 mg b.i.d., PROPRANOLOL, Phenergan, Crestor, Cozaar, Zaditor and Claritin. PQRS: 1. He has a history of osteoarthritis in his upper and lower extremities and his lumbar spine. Denies any rheumatoid arthritis. 2. Height is 5 feet 4 inches, weight is 147, BMI is 25. 3. Vital signs 132/73, pulse is 69, respirations 14, oxygen sat is 96. 4. Pain score is 0. 5. Denies dizziness, does not need help walking or standing, has not fallen in the last 3 months. 6. The patient is not on any blood thinners. He does take medicine for hypertension. 7. Opioid therapy is greater than 6 weeks; therefore, an opioid signed contract is on the chart. 8. Risk assessment is high. Functional assessment is 36/70. 9. Recreational drug use, he denies. He is not a smoker and does not drink alcohol. [address] [address] PAIN MANAGEMENT CONSULTATION Name: VIKTORIA MILAN Room #: REG [facility] Katarzyna#: [id number] Admission: 02/04/19 Attend Phys: Jillian Cihld Discharge: Date of : 53 Report #: [id number] We did check the prescription monitoring system. The patient is filling appropriately for his medications. He is on time to fill those today. We will check a random drug screen on this patient since this has been greater than one year. PHYSICAL EXAMINATION: GENERAL: This is a well-developed, well-nourished, well-hydrated 63-year-old gentleman who appears his stated age, placing his current pain score is 0 currently. HEENT: Normocephalic, atraumatic. Extraocular eye muscles are intact. Mucous membranes are moist. MUSCULOSKELETAL: The patient does have significant scoliosis. He moves from sitting to standing position and ambulates with mild antalgic features. He has a scar from his previous surgery in his lumbar spine. He has pain with flexion and extension. His lower extremity strength judged to be 5/5 in all major muscle groups. We reviewed the fact that opiate medications are being used to provide analgesia adequate to support activities of daily living, not attempting to achieve a specific pain score on the 0-10 Visual Analog Scale. The current opiate medications are providing sufficient analgesia to allow the patient to participate in activities of daily living. The patient is not exhibiting any aberrant behavior suggestive of drug diversion. The patient is not having any adverse reactions to medications. The patient is not suffering from daytime somnolence or mental acuity changes. The patient is managing opiate-induced constipation with appropriate [id number] agents and dietary considerations. The patient was counseled on concern for caution with operating a motor vehicle while using opiate medications. A physical exam was performed and the patient's functional status was evaluated. All patients with back pain were advised against the bed rest greater than 4 days and were advised to return to normal activities. Pain score assessment was noted and the treatment plan was reviewed with the patient. All current medications, both prescribed and OTC were reviewed and reconciled on the electronic medical record. Tobacco screening was accomplished and smoking cessation was advised when indicated. BMI was noted and diet/exercise modification was recommended for all patients following outside normal parameters. I reviewed with the patient today their responsibilities to safeguard prescription medications, reviewed their responsibility to utilize medications only as prescribed by the physician. They are to seek and receive pain medications only from 1 physician group ([facility]). They are to use 1 pharmacy and keep the clinic informed if they change pharmacies. Their responsibilities include making followup visits in a timely fashion and to avoid abrupt discontinuation of medication usage. Their responsibilities further [address] [address] PAIN MANAGEMENT CONSULTATION Name: VIKTORIA MILAN Room #: REG [facility]#: [id number] Admission: 02/04/19 Attend Phys: Jillian EMILIO Browningyolanda Discharge: Date of : 53 Report #: [id number] include bringing their medications (bottles from the pharmacy with residual pills) to the visit for possible confirmation of pill counts and the patient understands it is their responsibility to submit to random drug screens to ensure both that the medications prescribed are present, and that no other controlled substances are present. All prescriptions provided today were generated electronically. PLAN: 1. We discussed treatment options with the patient today. The patient recently started seeing a neurologist and started on nortriptyline. The patient feels that this has been beneficial in decreasing his headaches. He is trying to monitor his triggers as well that cause his migraine headaches. The patient is currently taking 20 mg nortriptyline. He has been instructed to escalate up to 50 mg. We did talk about lowest most effective dose and side effects of this medication. The patient verbalizes understanding. 2. Scripts given for OxyContin 10 mg, #60 for today for an 8-week release and oxycodone 5/325, #60 today for an 8-week release. This keeps the patient's morphine mEq at 45 morphine mEq, which is below the CDC guidelines. 3. We did collect a urine drug screen on this patient today. 4. The patient tells me that the epidural transforaminal that Dr. Owen Live gave him in [place] was at least 50% better for at least a month and has still continued to be beneficial, not quite at the 50% level as time passes. The patient seen in collaboration today with Dr. Owen Live, who collaborated with care today. <ELECTRONICALLY SIGNED> By: Jillian Child 02/05/19 0811 1053 [id number] Jillian Child /nt
== END ==
LOC: PAIN 06:50
DX: M54.16 Radiculopathy, lumbar region (principal); Z98.1 Arthrodesis status

== ENCOUNTER → 2019-04-29 | Outpatient (CLI) | payer BC, OTHER ==
[~2019-04-29] VITALS: Ht 157.5 cm; Wt 67.1 kg
[~2019-04-29] MED LIST changes: +ADDERALL 5 MG TA5 M1 PO; +OMEPRAZOLE40 MG PO
[2019-04-29 13:04] VITALS: BP 134/83
--- NOTE | 2019-04-29 13:20 | NUR ---
Pain Clinic Assessment: 1. History of Osteoarthritis: Right Lower Extremity Right Upper Extremity RIGHT KNEE RIGHT HAND History of Rheumatoid Arthritis: Not Applicable 2. Height: 5 ft. 2 in. 157.5 cm. Weight: 148.0 lb. oz. 67.132 kg. Patient's BMI: 27.1 3. Vital Signs: BP: 134/83 Pulse: 59 Resp: 14 Temp: 02 Sat: 100 ECG Mon: 4. Pain Intensity: 5 5. Fall Risk: Dizziness: N Needs help standing or walking: N Fallen in the last 3 months: N Fall risk comments: 6. Patient on Blood Thinner: None 7. History of Hypertension: N 8. Opioid Therapy greater than 6 weeks: Y Opiate Contract Signed: 11/30/15 9. Risk Assessment Tool Provided: HIGH RISK 12 10. Functional Assessment Tool: 11. Recreational Drug Use: Never Drug Type: Tobacco Use: Never Smoker Tobacco Type: Amount or Packs/day: How Many Years: Alcohol Use: No Frequency: Quant:
--- NOTE | 2019-04-30 09:09 | HPC ---
[facility] [address] [place] [address] PAIN MANAGEMENT CONSULTATION Name: KAYLIVIKTORIA Jeff Room #: REG [facility] Katarzyna#: [id number] Admission: 04/29/19 Attend Phys: Jillian Child Discharge: Date of : 53 Report #: [id number] THIS REPORT FOR: //name// CC: Jillian Child Chris Page DATE OF SERVICE: 04/29/2019 CHIEF COMPLAINT: Chronic low back pain with radiculopathy, status post laminectomy and fusion. HISTORY OF PRESENT ILLNESS: This is a very pleasant 63-year-old gentleman who returns to the pain clinic today for refill of his OxyContin medication that he uses to help treat his ongoing low back pain and left buttock pain. He feels like he is having pain in the central part of his lumbar spine as well. It is a dull pain that may be progressed to a sharp pain, rating at a 5/10 today. It is worse with walking, bending, fatigue at the end of the day or too much activity. His medications are beneficial as well as stretching. He does yoga and he is started on a balance exercise program, which he finds beneficial in helping his core, but at times, it may make his pain worse as well. He continues to work and be very active while taking his medication, he finds them very beneficial. The patient is telling me that he feels like it may be time for another epidural steroid injection. Per our records, his last one was in November. He finds them very beneficial in helping control his pain. He would like to set an appointment prior to discharge today. He also denies any daytime sleepiness or severe constipation issues. ALLERGIES: LATEX. CURRENT LIST OF MEDICATIONS: OxyContin 10 mg b.i.d., oxycodone 5/325 b.i.d. p.r.n., omeprazole daily, Crestor 20 mg daily, Adderall 7.5 mg daily, nortriptyline 20 mg at bedtime, clorazepate 3.75 mg daily, propranolol 20 mg daily, losartan 50 mg daily, Zaditor drops and Claritin p.r.n. PQRS: 1. He has osteoarthritis in his upper and lower extremities as well as his lumbar spine. Denies any rheumatoid arthritis. 2. Height is 5 feet 2 inches, weight is 148, BMI is 27. 3. Vital signs 134/83, pulse is 59, respirations 14, oxygen sat is 100. 4. Pain score is 5/10. 5. Denies dizziness, does not need help walking or standing, has not fallen in the last 3 months. 6. The patient is not on any blood thinners, but does not take medicine for high blood pressure. 7. Opioid therapy is greater than 6 weeks; therefore, an opioid signed contract [address] [address] PAIN MANAGEMENT CONSULTATION Name: VIKTORIA MILAN Room #: REG ZAYDA Colón#: [id number] Admission: 04/29/19 Attend Phys: Jillian Child Discharge: Date of : 53 Report #: [id number] is on the chart. Risk assessment tool is high. Functional assessment is 36/70. 8. Recreational drug use, he denies. He is not a smoker and does not drink alcohol. According to the prescription monitoring system, the patient has been filling appropriately for his medications in a timely fashion. He does safeguard his medicines at all times. No apparent abuse noted. He does have a random drug screen on the chart that is appropriate for his medications as well. PHYSICAL EXAMINATION: GENERAL: This is a well-developed, well-nourished 63-year-old gentleman who appears his stated age, placing his current pain score at 5/10 today. HEENT: Normocephalic, atraumatic. Extraocular eye muscles are intact. Mucous membranes are moist. MUSCULOSKELETAL: The patient does have significant scoliosis. He moves from sitting to standing position without difficulty. He walks with some mild antalgic features. He has pain with flexion and extension. His lower extremity strength judged to be 5/5 in all major muscle groups. IMPRESSION: 1. Low back pain with radiculopathy at the L3-L4 left dermatomal distribution scoliosis. 2. Failed back syndrome. 3. Complex medical management under terms of written opioid agreement. PLAN: 1. We discussed treatment options with the patient today. He feels that the medication is very beneficial in controlling his pain, though he feels that it is time for another transforaminal epidural and would like to schedule that prior to discharge today before the holiday season. 2. Scripts given today for OxyContin 10 mg b.i.d., #60 for today, 4-week and 8-week release, and oxycodone 5/325, #60 for today and 4-week release. This does place the patient at 45 morphine milliequivalents according to the CDC guidelines. These were sent electronically today. 3. The patient tells me that the nortriptyline affords him good sleep and has decreased some of his migraines. It is very beneficial that his neurologist has increased his dose of that medication. 4. The patient denies any problems with daytime sleepiness, though he does take Adderall. He is cautious to take it not any later than 2:00 in the daytime, and he denies any problems with constipation as well. 5. The patient is seen in collaboration with Dr. Owen Live who did see the patient as well today. <ELECTRONICALLY SIGNED> By: Jillian Child 04/30/19 0909 1419 0224 Jillian Child /nt
== END ==
LOC: PAIN 06:54
DX: Z76.0 Encounter for issue of repeat prescription (principal); M54.16 Radiculopathy, lumbar region; Z91.040 Latex allergy status; Z79.891 Long term (current) use of opiate analgesic; Z79.899 Other long term (current) drug therapy

== ENCOUNTER → 2019-06-06 | Outpatient (CLI) | payer BC, OTHER ==
[~2019-06-06] VITALS: Ht 157.5 cm; Wt 0.4 kg
--- NOTE | ~2019-06-06 | HPC ---
[facility] [address] [place] [address] PAIN MANAGEMENT CONSULTATION Name: VIKTORIA MILAN Jeff Room #: REG ZAYDA ..#: [id number] Admission: 06/06/19 Attend Phys: Owen Live MD Discharge: Date of : 53 Report #: [id number] THIS REPORT FOR: //name// CC: Chris Live DATE OF SERVICE: 06/06/2019 Followup visit for low back pain with radiculopathy. The patient returns to pain clinic today for injection. He recently saw nurse practitioner, Jillian Child, who provided his medication for him under terms of written agreement. Those medications are working well. He is taking them as agreed upon under our agreement. He shows no signs of misuse or abuse. The record will reflect that he responds nicely to epidural injections and has received intermittent injections providing months of relief. He is preparing for [place], going to be in [place] with all of his family. He would like to repeat the injection today. He is pleased with the response. He is getting [facility]. His personal therapist there is Viv Hale and he calls her out. She is doing a great job of helping him with exercises, which he is maintaining on his own. We have discussed the importance of regular exercise. PQRS REVIEW: He has diffuse osteoarthritis involving both knees, shoulders, hands. BMI is 27. Blood pressure 153/96, heart rate 55. Pain intensity today 8/10. He is not a fall risk. He is on no blood thinners and is not treated for hypertension. He has signed an opioid agreement. He is considered at high risk for addiction, due to admitted prior history of drug use and we have kept a close eye on his use of medication. There have been no suspected misuse or abuses of his pain medication being taken. Additionally, his functional assessment score is 36/70. He denies use of tobacco and alcohol. PHYSICAL EXAMINATION: Pleasant, alert and oriented, moves independently from sitting to standing position. His gait is mildly antalgic. He has kyphoscoliosis of the lumbar spine, which is noted. There is a scar from prior surgery. IMPRESSION: Low back pain with bilateral lumbar radiculopathy. RECOMMENDATIONS: We will continue to perform the injection using a transforaminal approach which has been helpful for both sides. Procedure will be performed from the left as we have done in the past. Procedure explained again briefly, he understands it well. Questions answered and we proceeded shortly thereafter. [address] [address] PAIN MANAGEMENT CONSULTATION Name: VIKTORIA MILAN Room #: REG [facility] Katarzyna#: [id number] Admission: 06/06/19 Attend Phys: Owen Live MD Discharge: Date of : 53 Report #: [id number] PROCEDURE: After informed consent, he was taken to the fluoroscopic suite, placed prone, skin prepped with ChloraPrep. Skin anesthetized over the L4-L5 neural foramen. Using triplanar fluoroscopic views, I advanced the needle in the neural foramen. After negative aspiration, I injected 1 mL of Omnipaque. Excellent spread of dye was observed into the epidural space, was followed by 3 mL of 0.5% lidocaine mixed with 80 mg of triamcinolone. He tolerated the procedure well. There were no complications. Pain score was reduced by 75% at discharge. Followup visit planned as needed for medication and further injection therapies that has requested. By: 1239 1410 Owen Live MD /nt
[2019-06-06 09:19] VITALS: BP 153/96
--- NOTE | 2019-06-06 09:20 | NUR ---
Pain Clinic Assessment: 1. History of Osteoarthritis: Right Lower Extremity Right Upper Extremity RIGHT KNEE RIGHT HAND History of Rheumatoid Arthritis: Not Applicable 2. Height: 5 ft. 2 in. 157.5 cm. Weight: lb. 15 oz. 0.425 kg. Patient's BMI: 0.2 3. Vital Signs: BP: 153/96 Pulse: 55 Resp: 14 Temp: 02 Sat: 99 ECG Mon: 4. Pain Intensity: 8 5. Fall Risk: Dizziness: Needs help standing or walking: Fallen in the last 3 months: Fall risk comments: 6. Patient on Blood Thinner: None 7. History of Hypertension: N 8. Opioid Therapy greater than 6 weeks: Y Opiate Contract Signed: 11/30/15 9. Risk Assessment Tool Provided: HIGH RISK 12 10. Functional Assessment Tool: 11. Recreational Drug Use: Never Drug Type: Tobacco Use: Never Smoker Tobacco Type: Amount or Packs/day: How Many Years: Alcohol Use: No Frequency: Quant:
== END | disposition home or self-care (01) ==
LOC: PAIN 06-05 12:21
DX: M54.16 Radiculopathy, lumbar region (principal); G89.29 Other chronic pain; M19.90 Unspecified osteoarthritis, unspecified site; Z98.890 Other specified postprocedural states; Z91.040 Latex allergy status; Z79.899 Other long term (current) drug therapy

== ENCOUNTER → 2019-08-01 | Outpatient (CLI) | payer BC, OTHER ==
[~2019-08-01] VITALS: Ht 157.5 cm; Wt 68.8 kg
[2019-08-01 09:45] VITALS: BP 131/86
--- NOTE | 2019-08-01 09:49 | NUR ---
Pain Clinic Assessment: 1. History of Osteoarthritis: Right Lower Extremity Right Upper Extremity RIGHT KNEE RIGHT HAND History of Rheumatoid Arthritis: Not Applicable 2. Height: 5 ft. 2 in. 157.5 cm. Weight: 151.6 lb. oz. 68.765 kg. Patient's BMI: 27.7 3. Vital Signs: BP: 131/86 Pulse: 58 Resp: 14 Temp: 02 Sat: 100 ECG Mon: 4. Pain Intensity: 5 5. Fall Risk: Dizziness: Y Needs help standing or walking: N Fallen in the last 3 months: N Fall risk comments: 6. Patient on Blood Thinner: None 7. History of Hypertension: N 8. Opioid Therapy greater than 6 weeks: Y Opiate Contract Signed: 11/30/15 9. Risk Assessment Tool Provided: HIGH RISK 12 10. Functional Assessment Tool: 11. Recreational Drug Use: Never Drug Type: Tobacco Use: Never Smoker Tobacco Type: Amount or Packs/day: How Many Years: Alcohol Use: No Frequency: Quant:
--- NOTE | 2019-08-06 07:57 | HPC ---
[facility] [address] [place] [address] PAIN MANAGEMENT CONSULTATION Name: VIKTORIA MILAN Room #: REG ZAYDA [facility].#: [id number] Admission: 08/01/19 Attend Phys: Owen Live MD Discharge: Date of : 53 Report #: [id number] THIS REPORT FOR: cc: Chris Page MD, John L. MD Hocker, Amanda [facility] ~ THIS REPORT FOR: //name// CC: Chris Live DATE OF SERVICE: 08/01/2019 CHIEF COMPLAINT: Chronic low back pain with radiculopathy, status post laminectomy and fusion. HISTORY OF PRESENT ILLNESS: This is a very pleasant 63-year-old gentleman who returns to the pain clinic today for refill of his medications. He is reporting a pain score of 5/10 in his lower back and left hip and buttock. He feels that it is a dull pain that is occasionally sharp with too much activity or being in one position for too long. He reports that the medication as well as activity and stretching are beneficial. He had a left transforaminal in May by Dr. Owen Live. He reports that he had at least 70% relief from that injection for at least 6 weeks. He feels that it was very beneficial better than some other injections he has had in the past. He has been on a trip and was able to walk and be as active as he would like during that time, he denies any problems with constipation. ALLERGIES: LATEX. CURRENT LIST OF MEDICATIONS: OxyContin 10 mg b.i.d., oxycodone 5/325 p.r.n., Crestor, omeprazole, Adderall, nortriptyline, clorazepate, Excedrin, Inderal, Crestor, Cozaar, Zaditor, and Claritin. PQRS: 1. He has osteoarthritis in his upper and lower extremities and lumbar spine. Denies any rheumatoid arthritis. 2. Height is 5 feet 2 inches, weight is 151. BMI is 27. 3. Vital Signs: 131/86, pulse is 58, respirations 14, oxygen sat is 100. 4. Pain score is 5/10. 5. Complains of slight dizziness, has not fallen in the last 3 months. He is not on any blood thinners, but does take medicine for hypertension. Opioid therapy is greater than 6 weeks; therefore, an opiate signed contract is on the chart. 6. His risk assessment is high. Functional assessment is 36/70. 7. Recreational drug use, he denies. He is not a smoker [place] [address] PAIN MANAGEMENT CONSULTATION Name: VIKTORIA MILAN [id number] Admission: 08/01/19 Attend Phys: Owen Live MD Discharge: Date of : 53 Report #: [id number] alcohol. According to the prescription monitoring system, the patient is filling appropriately for his medicine. He is due to fill those today in a timely fashion. His current morphine mEq per day is 45. There is a recent drug screen on the chart that is appropriate as well. PHYSICAL EXAMINATION: GENERAL: This is alert and orientated 63-year-old gentleman who appears his stated age, placing his current pain score 5/10. HEENT: Normocephalic, atraumatic. Extraocular eye muscles are intact. Mucous membranes are moist. MUSCULOSKELETAL: He moves from sitting to standing without difficulty. He has a mild antalgic gait. He has scoliosis of his thoracic and lumbar spine. Pain with flexion and extension that radiates from his lower lumbosacral region down his left leg following the L3-L4, L4-L5 dermatomal distribution. IMPRESSION: 1. Low back pain with radiculopathy at the L3-L4, L4-L5 left dermatomal distribution. 2. Scoliosis. 3. Failed back syndrome. 4. Complex medical management under terms of written opioid agreement. We reviewed the fact that opiate medications are being used to provide analgesia adequate to support activities of daily living, not attempting to achieve a specific pain score on the 0-10 Visual Analog Scale. The current opiate medications are providing sufficient analgesia to allow the patient to participate in activities of daily living. The patient is not exhibiting any aberrant behavior suggestive of drug diversion. The patient is not having any adverse reactions to medications. The patient is not suffering from daytime somnolence or mental acuity changes. The patient is managing opiate-induced constipation with appropriate xtrd-jnl-udglsad agents and dietary considerations. The patient was counseled on concern for caution with operating a motor vehicle while using opiate medications. PLAN: 1. We discussed treatment options with the patient today. The patient finds that the epidural helped at least 70% of his pain. He is still getting some relief. He reports his mornings are better, which usually that was at time of increased pain. 2. The patient needs refill of his OxyContin and oxycodone. The patient finds he is requiring two tablets of his breakthrough pain pills every day where in the past he required 1 to 1-1/2. He is requesting 3 months of each of his medicines to be filled today. We will send these electronically by Dr. Owen Live to his pharmacy OxyContin 10 #60 for 3 months and oxycodone 5/325, #[address] [place] [address] PAIN MANAGEMENT CONSULTATION Name: VIKTORIA MILAN Room #: WAQAS Colón#: [id number] Admission: 08/01/19 Attend Phys: Owen Live MD Discharge: Date of : 53 Report #: [id number] for 3 months. 3. The patient is seen in collaboration with Dr. Owen Live, who I discussed this case with today. <ELECTRONICALLY SIGNED> By: Jillian Child 08/06/19 0757 [id number] 1048 Jillian Child /nt
== END ==
LOC: PAIN 07:49
DX: Z76.0 Encounter for issue of repeat prescription (principal); M96.1 Postlaminectomy syndrome, not elsewhere classified; M54.16 Radiculopathy, lumbar region; Z79.899 Other long term (current) drug therapy; Z79.891 Long term (current) use of opiate analgesic

== ENCOUNTER → 2019-10-24 | Outpatient (CLI) | payer BC, OTHER ==
[~2019-10-24] VITALS: Ht 160 cm; Wt 70.3 kg
[2019-10-24 09:47] VITALS: BP 139/90
--- NOTE | 2019-10-24 09:54 | NUR ---
Pain Clinic Assessment: 1. History of Osteoarthritis: Right Lower Extremity Right Upper Extremity RIGHT KNEE RIGHT HAND History of Rheumatoid Arthritis: Not Applicable 2. Height: 5 ft. 3 in. 160.0 cm. Weight: 155.0 lb. oz. 70.308 kg. Patient's BMI: 27.5 3. Vital Signs: BP: 139/90 Pulse: 62 Resp: 18 Temp: 02 Sat: 97 ECG Mon: 4. Pain Intensity: 5 5. Fall Risk: Dizziness: N Needs help standing or walking: N Fallen in the last 3 months: N Fall risk comments: 6. Patient on Blood Thinner: None 7. History of Hypertension: N 8. Opioid Therapy greater than 6 weeks: Y Opiate Contract Signed: 11/30/15 9. Risk Assessment Tool Provided: HIGH RISK 12 10. Functional Assessment Tool: 11. Recreational Drug Use: Never Drug Type: Tobacco Use: Never Smoker Tobacco Type: Amount or Packs/day: How Many Years: Alcohol Use: No Frequency: Quant:
--- NOTE | 2019-10-24 14:48 | HPC ---
[facility] [address] [address] PAIN MANAGEMENT CONSULTATION Name: VIKTORIA MILAN Room #: REG ZAYDA Ish.#: [id number] Admission: 10/24/19 Attend Phys: Jillian Child Discharge: Date of : 53 Report #: [id number] THIS REPORT FOR: cc: Chris Page MD, John L. MD Hocker, Amanda CNS ~ CC: Owen Live MD DATE OF SERVICE: 10/24/2019 CHIEF COMPLAINT: Low back pain with radiculopathy, status post fusion and laminectomy. HISTORY OF PRESENT ILLNESS: This is a very pleasant 63-year-old gentleman who returns to the pain clinic today for refill of his opioid medications that he uses to help manage his ongoing low back pain and lumbar radiculopathy. Today, he reports a pain score of 5/10. He feels that his pain has slightly increased. 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 He states he has been trying to continue his Pilates 2 times a week and he does go to physical therapy 2 times a week. He states he has recently started bike riding again, but he does state that the COVID virus has also increased his stress and all these things together he believes has slightly increased his pain. He describes it as a sharp, dull pain. He reports that the injections from Dr. Owen Live do help him feel better. He typically takes them twice a year. He would like to schedule a transforaminal injection in November with Dr. Live. He does get very significant relief. The last one provided him with at least 70% for almost 2 months. Today, he would like refills of his pain medications. ALLERGIES: ADHESIVE TAPE, LATEX. CURRENT LIST OF MEDICATIONS: Oxycodone 5/325 p.r.n., OxyContin 10 mg b.i.d., omeprazole, Adderall, nortriptyline, Inderal, Crestor, Cozaar, Zaditor, and Claritin. PQRS: 1. He has osteoarthritis in his upper and lower extremities and his lumbar spine. Denies any rheumatoid arthritis. 2. Height is 5 feet 3 inches, weight is 155. BMI is 27. 4. Vital signs 139/90, pulse is 62, respirations 18, oxygen sat is 97. 5. Pain score is 5/10. 6. Denies dizziness, does not need help walking or standing, has not fallen in the last 3 months. 7. The patient is not on any blood thinners, [place] [address] PAIN MANAGEMENT CONSULTATION Name: VIKTORIA MILAN Room #: REG ZAYDA Colón#: [id number] Admission: 10/24/19 Attend Phys: Jillian Child Discharge: Date of : 53 Report #: [id number] hypertension. 8. Opioid therapy is greater than 6 weeks; therefore, an opioid signed contract is on the chart. Risk assessment is high. Functional assessment is 36/70. 9. Recreational drug use, he denies. He is not a smoker and does not drink alcohol. According to the prescription monitoring system, the patient is due to fill his medications next week, filling them in a timely fashion. According to the CDC guidelines, his morphine mEq is 45 MME. There is a recent drug screen on the chart that was appropriate for his medications as well. PHYSICAL EXAMINATION: GENERAL: This is alert and orientated 63-year-old gentleman who appears his stated age, placing his current pain score at 5/10. HEENT: Normocephalic, atraumatic. Extraocular eye muscles are intact. He is wearing a mask today. MUSCULOSKELETAL: He has a mildly antalgic gait. He has scoliosis of his thoracic and lumbar spine. He has pain with flexion and extension that radiates into the lumbosacral region following the L3-L4, L4-L5 dermatomal distribution. IMPRESSION: 1. Low back pain with radiculopathy at the L3-L4 and L4-L5 dermatomal distribution, greater on the left. 2. Scoliosis. 3. Failed back syndrome. 4. Complex medical management under terms of written opioid agreement. We reviewed the fact that opiate medications are being used to provide analgesia adequate to support activities of daily living, not attempting to achieve a specific pain score on the 0-10 Visual Analog Scale. The current opiate medications are providing sufficient analgesia to allow the patient to participate in activities of daily living. The patient is not exhibiting any aberrant behavior suggestive of drug diversion. The patient is not having any adverse reactions to medications. The patient is not suffering from daytime somnolence or mental acuity changes. The patient is managing opiate-induced constipation with appropriate lvxl-swg-oloyzin agents and dietary considerations. The patient was counseled on concern for caution with operating a motor vehicle while using opiate medications. A physical exam was performed and the patient's functional status was evaluated. All patients with back pain were advised against the bed rest greater than 4 days and were advised to return to normal activities. Pain score assessment was noted and the treatment plan was reviewed with the patient. All current medications, both prescribed and OTC were reviewed and reconciled on the electronic medical record. Tobacco screening was accomplished and smoking cessation was advised when indicated. BMI was noted and diet/exercise [facility] [address] [place] [address] PAIN MANAGEMENT CONSULTATION Name: VIKTORIA MILAN [facility] #: [facility] [id number] Admission: 10/24/19 Attend Phys: Jillian EMILIO Mateusz Discharge: Date of : 53 Report #: [id number] modification was recommended for all patients following outside normal parameters. I reviewed with the patient today their responsibilities to safeguard prescription medications, reviewed their responsibility to utilize medications only as prescribed by the physician. They are to seek and receive pain medications only from 1 physician group ( [facility]). They are to use 1 pharmacy and keep the clinic informed if they change pharmacies. Their responsibilities include making followup visits in a timely fashion and to avoid abrupt discontinuation of medication usage. Their responsibilities further include bringing their medications (bottles from the pharmacy with residual pills) to the visit for possible confirmation of pill counts and the patient understands it is their responsibility to submit to random drug screens to ensure both that the medications prescribed are present, and that no other controlled substances are present. All prescriptions provided today were generated electronically. PLAN: 1. We discussed treatment options with the patient today. The patient feels his medications are very beneficial in allowing him to be as active as he would like, though he is having increased pain due to his decrease in activity due to the COVID-19 virus. The patient is hopeful that things will begin to open up and he will be able to work slightly more, which will aid in decreasing his pain. He would also like to schedule a left transforaminal epidural by Dr. Owen Live. He believes these are very beneficial in helping him with decreasing his pain as well as his medications. We will schedule him for an appointment prior to discharge today. 2. Dr. Owen Live will send his scripts electronically to the pharmacy for OxyContin 10 mg b.i.d., #60 for 3 months as well as his Percocet 5/325, #60 for 3 months. 3. The patient is seen in collaboration with Dr. Owen Live who did see the patient as well today. <ELECTRONICALLY SIGNED> By: Jillian Child 10/24/19 1448 1023 1115 Jillian Child /nt
== END ==
LOC: PAIN 06:50
DX: M54.16 Radiculopathy, lumbar region (principal); M41.9 Scoliosis, unspecified; M96.1 Postlaminectomy syndrome, not elsewhere classified; F11.20 Opioid dependence, uncomplicated; Z88.8 Allergy status to other drugs, medicaments and biological substances; Z79.899 Other long term (current) drug therapy; Z98.1 Arthrodesis status

== ENCOUNTER → 2019-12-05 | Outpatient (CLI) | payer BC, OTHER ==
[~2019-12-05] VITALS: Ht 160 cm; Wt 68.0 kg
[2019-12-05 09:56] VITALS: BP 130/88
--- NOTE | 2019-12-05 10:02 | NUR ---
Pain Clinic Assessment: 1. History of Osteoarthritis: Right Lower Extremity Right Upper Extremity RIGHT KNEE RIGHT HAND History of Rheumatoid Arthritis: Not Applicable 2. Height: 5 ft. 3 in. 160.0 cm. Weight: 150.0 lb. oz. 68.040 kg. Patient's BMI: 26.6 3. Vital Signs: BP: 130/88 Pulse: 56 Resp: 16 Temp: 02 Sat: 99 ECG Mon: 4. Pain Intensity: 1 5. Fall Risk: Dizziness: N Needs help standing or walking: N Fallen in the last 3 months: Y Fall risk comments: 6. Patient on Blood Thinner: None 7. History of Hypertension: N 8. Opioid Therapy greater than 6 weeks: Y Opiate Contract Signed: 11/30/15 9. Risk Assessment Tool Provided: HIGH RISK 12 10. Functional Assessment Tool: 11. Recreational Drug Use: Never Drug Type: Tobacco Use: Never Smoker Tobacco Type: Amount or Packs/day: How Many Years: Alcohol Use: No Frequency: Quant:
--- NOTE | 2019-12-13 15:51 | HPC ---
[facility] [place] [address] [place] [address] PAIN MANAGEMENT CONSULTATION Name: VIKTORIA MILAN Room #: REG ZAYDA [facility]#: [id number] Admission: 12/05/19 Attend Phys: Owen Live MD Discharge: Date of : 53 Report #: [id number] THIS REPORT FOR: cc: Chris Page MD, John L. MD Morgan,Owen Johnson MD ~ CC: Chris Live DATE OF SERVICE: 12/05/2019 Followup visit for chronic low back pain, spondylosis with lumbar radiculopathy, left L5-S1 distribution. The patient returns to pain clinic today and is here for a lumbar transforaminal epidural injection. This has been quite helpful for him and he typically reports pain relief in the range of 60-70%. Pain relief can last for many months. His last injection for this condition was performed successfully with good results in May. He would like to repeat the injection. He is also part of our opioid management program and was seen by EMILIO Garcia on 10/24/2019. I reviewed his medication with him briefly. We had multiple discussions about it over time. His pain impact score continues to remain high in the range of 36. All medications have been reviewed and reconciled. PHYSICAL EXAMINATION: VITAL SIGNS: Blood pressure 138/88, heart rate 56, respirations 16. MUSCULOSKELETAL: Moves independently from sitting to standing position, ambulates with mild antalgic features. There is tenderness across his low back. There is a scar from previous surgery. He has pain with forward flexion, extension, rotational movements as well. Strength and sensation are normal in lower extremities. IMPRESSION: Chronic intractable low back pain, post-laminectomy syndrome with radiculopathy. Pain is worse on the left. Majority of his pain today is in the L5 dermatomal distribution. He has had pain extending also from L3 through L5 and we had success injecting him at the L3-L4 level for a transforaminal injection. Potential benefits and risks reviewed. He would like to proceed. DESCRIPTION OF PROCEDURE: He was taken to fluoroscopic suite, placed prone, skin prepped with ChloraPrep. Skin anesthetized over the L3-L4 neural foramen on the left. Using triplanar fluoroscopic views, I advanced needle into the epidural space. A 1 mL of Omnipaque demonstrated an excellent epidurogram, was followed by 3 mL of 0.5% lidocaine mixed with 80 mg of triamcinolone. He [address] [address] PAIN MANAGEMENT CONSULTATION Name: VIKTORIA MILAN Room #: REG CLI Katarzyna#: [id number] Admission: 12/05/19 Attend Phys: Owen Live MD Discharge: Date of : 53 Report #: [id number] tolerated the procedure well and was observed for 45 minutes and discharged. Followup visit planned in the future as needed. <ELECTRONICALLY SIGNED> By: Owen Live MD 12/13/19 1551 [id number] 1819 MD genevieve Salamanca
== END | disposition home or self-care (01) ==
LOC: PAIN 07:52
PROVIDERS: ATTEND Anesthesiology Pain Medicine
DX: M54.16 Radiculopathy, lumbar region (principal); G89.29 Other chronic pain; M96.1 Postlaminectomy syndrome, not elsewhere classified; Z79.891 Long term (current) use of opiate analgesic; Z98.890 Other specified postprocedural states; Z79.899 Other long term (current) drug therapy; Z91.040 Latex allergy status

== ENCOUNTER → 2020-01-27 | Outpatient (CLI) | payer BC, OTHER ==
[~2020-01-27] VITALS: Ht 157.5 cm; Wt 67.6 kg
[2020-01-27 08:46] VITALS: BP 126/78
--- NOTE | 2020-01-27 08:58 | NUR ---
Pain Clinic Assessment: 1. History of Osteoarthritis: Right Lower Extremity Right Upper Extremity RIGHT KNEE RIGHT HAND History of Rheumatoid Arthritis: Not Applicable 2. Height: 5 ft. 2 in. 157.5 cm. Weight: 149.0 lb. oz. 67.586 kg. Patient's BMI: 27.2 3. Vital Signs: BP: 126/78 Pulse: 61 Resp: 16 Temp: 02 Sat: 98 ECG Mon: 4. Pain Intensity: 2 5. Fall Risk: Dizziness: N Needs help standing or walking: N Fallen in the last 3 months: N Fall risk comments: 6. Patient on Blood Thinner: None 7. History of Hypertension: Y 8. Opioid Therapy greater than 6 weeks: Y Opiate Contract Signed: 11/30/15 9. Risk Assessment Tool Provided: HIGH RISK-17 10. Functional Assessment Tool: 11. Recreational Drug Use: Never Drug Type: Tobacco Use: Never Smoker Tobacco Type: Amount or Packs/day: How Many Years: Alcohol Use: No Frequency: Quant:
--- NOTE | 2020-01-27 13:31 | HPC ---
[facility] [address] [place] [address] PAIN MANAGEMENT CONSULTATION Name: VIKTORIA MILAN Room #: REG ZAYDA IshIsh#: [id number] Admission: 01/27/20 Attend Phys: Jillian Child Discharge: Date of : 53 Report #: [id number] THIS REPORT FOR: cc: Chris Page MD, John L. MD Hocker, Amanda CNS ~ CC: Owen Live MD DATE OF SERVICE: 01/27/2020 CHIEF COMPLAINT: Low back pain, spondylosis with lumbar radiculopathy. HISTORY OF PRESENT ILLNESS: This is a very pleasant 64-year-old gentleman who returns to the pain clinic today for a refill of his opioid medications that he helps manage his ongoing low back pain. It does radiate down his left leg into his buttock. He feels that the transforaminal epidural steroid injection that Dr. Owen Live performed in November helped at least 50%. He feels it was not as beneficial as it had been in the past, but he feels that he is still gaining some benefit from him several months later. Today, he is rating his pain at 2. It is an aching and tingly feeling, occasional sharp. He did have a flare of right-sided pain when he was bicycling the other day that is not a normal occurrence for him. He reports normally his pain is worse upon awakening in the morning and with prolonged standing and sitting. He feels that stretching as well as his medication and being active are very beneficial. He denies any daytime somnolence or constipation as a result of his opioid medications. ALLERGIES: LATEX. CURRENT LIST OF MEDICATIONS: Oxycodone 5/325 p.r.n., OxyContin 10 mg b.i.d., omeprazole, Adderall, nortriptyline, Inderal, Phenergan, Crestor, losartan, Zaditor, Nasonex, and Claritin. PQRS: 1. He does have osteoarthritis in his upper and lower extremities as well as his right knee and hand. Denies any rheumatoid arthritis. 2. Height is 5 feet 2 inches, weight is 149, BMI is 27. Vital signs 126/78, pulse is 61, respirations 16, oxygen sat is 98%. 3. Pain score is 2/10. 4. Denies dizziness, does not need help walking or standing, has not fallen in the last 3 months. The patient is not on any blood thinners, but does take medicine for hypertension. His opioid therapy is greater than 6 weeks; therefore, an opioid signed contract is on the chart. Risk assessment is high. Functional assessment is 26/70. 5. Recreational drug use, he denies. He is not a smoker and does not drink alcohol. [address] [address] PAIN MANAGEMENT CONSULTATION Name: VIKTORIA MILAN Room #: REG CLI Katarzyna#: [id number] Admission: 01/27/20 Attend Phys: Jillian Child Discharge: Date of : 53 Report #: [id number] According to the prescription monitoring system, he is filling appropriately and due to fill these medications today. His morphine milliequivalent according to the CDC guidelines is 45 MMEs. PHYSICAL EXAMINATION: GENERAL: This is alert and orientated, very pleasant 64-year-old who is well-developed, well-nourished, rating his pain score at 2/10 today. HEENT: Normocephalic, atraumatic. He is wearing glasses. He does have a stye present on his right eye today that is not affecting his vision. He is wearing a mask. MUSCULOSKELETAL: He moves independently from a sitting to standing position. He has tenderness across his lumbar spine. It does radiate into his right buttock following the L3-L4, L4-L5 dermatomal distribution. His pain is increased with forward flexion, extension and rotational movements. He walks with a mild antalgic gait. His lower extremity strength is symmetrical at 5/5 and good sensations are present. IMPRESSION: 1. Chronic low back pain, post-laminectomy syndrome with radiculopathy. 2. Lumbar spondylosis. 3. Scoliosis. 4. Failed back syndrome. 5. Complex medical management under terms of written opioid agreement. We reviewed the fact that opiate medications are being used to provide analgesia adequate to support activities of daily living, not attempting to achieve a specific pain score on the 0-10 Visual Analog Scale. The current opiate medications are providing sufficient analgesia to allow the patient to participate in activities of daily living. The patient is not exhibiting any aberrant behavior suggestive of drug diversion. The patient is not having any adverse reactions to medications. The patient is not suffering from daytime somnolence or mental acuity changes. The patient is managing opiate-induced constipation with appropriate ytpi-hto-ovdtarw agents and dietary considerations. The patient was counseled on concern for caution with operating a motor vehicle while using opiate medications. PLAN: 1. We discussed treatment options with the patient today that transforaminal epidural steroid injection afforded him at least 50% and is still slightly beneficial at this time several months later. 2. The patient finds his medications beneficial as well. We will continue those and have Dr. Owen Live send them electronically. A scripts sent for OxyContin 10 mg b.i.d., #60 for today, 4 and 8-week release as well as his oxycodone 5/325, #60 for today, 4 and 8-week release. He has been stable on this current dose for several years. [facility] [address] [place] [address] PAIN MANAGEMENT CONSULTATION Name: VIKTORIA MILAN Room #: REG ZAYDA Colón#: [id number] Admission: 01/27/20 Attend Phys: Jillian Child Discharge: Date of : 53 Report #: [id number] 3. The patient denies any somnolence or constipation from these medications. The patient instructed to call for an appointment when he fills his last prescription The patient is seen in collaboration today with Dr. Owen Live. <ELECTRONICALLY SIGNED> By: Jillian Child 01/27/20 1331 0916 0939 Jillian Child /nt
== END ==
LOC: PAIN 06:42
PROVIDERS: ATTEND Clinical Nurse Specialist Adult Health
DX: M47.26 Other spondylosis with radiculopathy, lumbar region (principal); M41.86 Other forms of scoliosis, lumbar region; F11.20 Opioid dependence, uncomplicated; Z88.8 Allergy status to other drugs, medicaments and biological substances; Z79.899 Other long term (current) drug therapy

== ENCOUNTER → 2020-04-30 | Outpatient (CLI) | payer BC, OTHER ==
[~2020-04-30] VITALS: Ht 157.5 cm; Wt 69.0 kg
[2020-04-30 10:18] VITALS: BP 141/87
--- NOTE | 2020-04-30 10:29 | NUR ---
Pain Clinic Assessment: 1. History of Osteoarthritis: Right Lower Extremity Right Upper Extremity RIGHT KNEE RIGHT HAND History of Rheumatoid Arthritis: Not Applicable 2. Height: 5 ft. 2 in. 157.5 cm. Weight: 152.2 lb. oz. 69.037 kg. Patient's BMI: 27.8 3. Vital Signs: BP: 141/87 Pulse: 60 Resp: 14 Temp: 02 Sat: 100 ECG Mon: 4. Pain Intensity: 1 sitting, sometimes 5 5. Fall Risk: Dizziness: N Needs help standing or walking: N Fallen in the last 3 months: N Fall risk comments: 6. Patient on Blood Thinner: None 7. History of Hypertension: Y 8. Opioid Therapy greater than 6 weeks: Y Opiate Contract Signed: 11/30/15 9. Risk Assessment Tool Provided: HIGH RISK-17 10. Functional Assessment Tool: 11. Recreational Drug Use: Never Drug Type: Tobacco Use: Never Smoker Tobacco Type: Amount or Packs/day: How Many Years: Alcohol Use: No Frequency: Quant:
--- NOTE | 2020-05-01 08:34 | HPC ---
[facility] [address] [place] [address] PAIN MANAGEMENT CONSULTATION Name: VIKTORIA MILAN Room #: REG ZAYDA IshIsh#: [id number] Admission: 04/30/20 Attend Phys: Jillian Child Discharge: Date of : 53 Report #: [id number] THIS REPORT FOR: cc: Chris Page MD, John L. MD Hocker, Amanda CNS ~ CC: Jillian Live MD DATE OF SERVICE: 04/30/2020 CHIEF COMPLAINT: Low back pain, spondylosis and lumbar radiculopathy. HISTORY OF PRESENT ILLNESS: This is a very pleasant 64-year-old gentleman who returns to the pain clinic today for a refill of his medications. Today, he is reporting a pain score of 1/10 when he is sitting, occasionally it can rise to a 5/10 in his lower back and left buttock. He does report that through the summer, his pain had done quite well. He also had had an injection by Dr. Live in November and has been finding that very beneficial. He feels at times he thinks the injection is slowly starting to wear off and his pain is returning. He may consider an injection in the near future, but today he would just like refills of his medication. He denies problems with constipation as a result of his medication, feels that his pain is worse with prolonged sitting and standing or stress. His pain is always slightly elevated in the morning. If he does exercise and stretch as well as his medication, he finds that overall he does quite well on his current regimen. The patient does report he had bronchitis since we have seen him last. During that time, he did have increase in constipation, but otherwise he has had no difficulty. ALLERGIES: LATEX. CURRENT LIST OF MEDICATIONS: Oxycodone 5/325 p.r.n., OxyContin 10 mg b.i.d. p.r.n., omeprazole, Adderall, nortriptyline, propranolol, promethazine, Crestor, Cozaar, Zaditor, Nasonex, and Claritin. PQRS: 1. He has a history of osteoarthritis in his upper and lower extremities as well as his hands. Denies any rheumatoid arthritis. 2. Height is 5 feet 2 inches, weight is 152, BMI is 27. 3. Vital signs 141/87, pulse is 60, respirations 14, oxygen sat is 100. 4. Pain score is 1-5. 5. Denies dizziness, does not need help walking, has not fallen in the last 3 months. 6. The patient is not on any blood thinners, [place] [address] PAIN MANAGEMENT CONSULTATION Name: VIKTORIA MILAN Room #: REG ZAYDA Colón#: [id number] Admission: 04/30/20 Attend Phys: Jillian Child Discharge: Date of : 53 Report #: [id number] hypertension. His opioid therapy is greater than 6 weeks; therefore, an opioid signed contract is on the chart. 7. Risk assessment is high. Functional assessment is 26/70. 8. Recreational drug use, he denies. He is not a smoker and does not drink alcohol. According to the prescription monitoring system, he is filling appropriately for his medications, filling them in a timely fashion. His morphine milliequivalent according to the CDC guidelines is 45 morphine mEq; therefore, he does come every 3 months. There is a drug screen on the chart that is appropriate for his medications and we will recheck that at his next appointment. At that time, it will be greater than a year. PHYSICAL EXAMINATION: GENERAL: This is alert and orientated, very pleasant patient who is a good historian, rating his pain score at 1-5 depending on time of day. HEENT: Normocephalic, atraumatic. Extraocular eye muscles are intact. Mucous membranes are moist. MUSCULOSKELETAL: He moves independently from the sitting to standing position. He does ambulate with slightly antalgic gait. He has tenderness across his lower back and pain is increased with forward flexion as well as extension and rotation. He has good sensation and strength in his lower extremities bilaterally at 5/5. IMPRESSION: 1. Chronic low back pain, post-laminectomy syndrome with radiculopathy. 2. Lumbar spondylosis. 3. Scoliosis. 4. Failed back syndrome. 5. Complex medical management under terms of written opioid agreement. We reviewed the fact that opiate medications are being used to provide analgesia adequate to support activities of daily living, not attempting to achieve a specific pain score on the 0-10 Visual Analog Scale. The current opiate medications are providing sufficient analgesia to allow the patient to participate in activities of daily living. The patient is not exhibiting any aberrant behavior suggestive of drug diversion. The patient is not having any adverse reactions to medications. The patient is not suffering from daytime somnolence or mental acuity changes. The patient is managing opiate-induced constipation with appropriate hfau-owt-[id number] agents and dietary considerations. The patient was counseled on concern for caution with operating a motor vehicle while using opiate medications. PLAN: 1. We discussed treatment options with the patient today. Overall, he feels he is doing quite well with the current medication regimen. He is noticing that at [facility] [address] [place] [address] PAIN MANAGEMENT CONSULTATION Name: VIKTORIA MILAN Room #: REG [facility]#: [id number] Admission: 04/30/20 Attend Phys: Jillian Child Discharge: Date of : 53 Report #: [id number] times he feels that he will be needing another transforaminal injection. I explained to him that Dr. Live will be gone the month of May, but one of his partners would gladly perform this procedure for him if he feels that he needs it before June. The patient will call and make an appointment if his pain does worsen. 2. Today, we will refill his OxyContin and oxycodone for 3 months, sending these electronically to the [facility] for today 4 week an 8-week release. These will be done by Dr. Owen Live. 3. Follow up as needed for an injection or medications. At that time, we will do a random drug screen on the patient. The patient seen in collaboration with Dr. Live. <ELECTRONICALLY SIGNED> By: Jillian Child 05/01/20 0834 [id number] Jillian Child /nt
== END ==
LOC: PAIN 06:52
PROVIDERS: ATTEND Clinical Nurse Specialist Adult Health
DX: M47.26 Other spondylosis with radiculopathy, lumbar region (principal); M96.1 Postlaminectomy syndrome, not elsewhere classified; F11.20 Opioid dependence, uncomplicated; Z88.8 Allergy status to other drugs, medicaments and biological substances; Z79.899 Other long term (current) drug therapy

== ENCOUNTER → 2020-06-29 | Outpatient (CLI) | payer BC, OTHER ==
[~2020-06-29] VITALS: Ht 157.5 cm; Wt 68.3 kg
[2020-06-29 09:26] VITALS: BP 133/78
--- NOTE | 2020-06-29 09:42 | NUR ---
Pain Clinic Assessment: 1. History of Osteoarthritis: Right Lower Extremity Right Upper Extremity RIGHT KNEE RIGHT HAND History of Rheumatoid Arthritis: Not Applicable 2. Height: 5 ft. 2 in. 157.5 cm. Weight: 150.6 lb. oz. 68.312 kg. Patient's BMI: 27.5 3. Vital Signs: BP: 133/78 Pulse: 64 Resp: 14 Temp: 02 Sat: 99 ECG Mon: 4. Pain Intensity: 2 5. Fall Risk: Dizziness: N Needs help standing or walking: N Fallen in the last 3 months: Y Fall risk comments: 6. Patient on Blood Thinner: None 7. History of Hypertension: Y 8. Opioid Therapy greater than 6 weeks: Y Opiate Contract Signed: 11/30/15 9. Risk Assessment Tool Provided: HIGH RISK-17 10. Functional Assessment Tool: 11. Recreational Drug Use: Never Drug Type: Tobacco Use: Never Smoker Tobacco Type: Amount or Packs/day: How Many Years: Alcohol Use: No Frequency: Quant:
== END | disposition home or self-care (01) ==
LOC: PAIN 06:52
PROVIDERS: ATTEND Anesthesiology Pain Medicine
DX: M54.16 Radiculopathy, lumbar region (principal); M96.1 Postlaminectomy syndrome, not elsewhere classified; G89.29 Other chronic pain; I10 Essential (primary) hypertension; M19.90 Unspecified osteoarthritis, unspecified site; Z98.890 Other specified postprocedural states; Z79.899 Other long term (current) drug therapy; Z79.891 Long term (current) use of opiate analgesic; Z91.040 Latex allergy status

== ENCOUNTER → 2020-09-21 | Outpatient (CLI) | payer BC, OTHER ==
[~2020-09-21] VITALS: Ht 162.6 cm; Wt 69.9 kg
[~2020-09-21] MED LIST changes: +MOBIC7.5 MG PO; +OXYCODONE-APAP1 EAC4 PO; +XTAMPZA ER9 MG PO
[2020-09-21 10:11] VITALS: BP 144/89
--- NOTE | 2020-09-21 10:15 | NUR ---
Pain Clinic Assessment: 1. History of Osteoarthritis: Right Lower Extremity Right Upper Extremity RIGHT KNEE RIGHT HAND History of Rheumatoid Arthritis: Not Applicable 2. Height: 5 ft. 4 in. 162.6 cm. Weight: 154.0 lb. oz. 69.854 kg. Patient's BMI: 26.4 3. Vital Signs: BP: 144/89 Pulse: 57 Resp: 16 Temp: 02 Sat: 100 ECG Mon: 4. Pain Intensity: 3 5. Fall Risk: Dizziness: N Needs help standing or walking: N Fallen in the last 3 months: N Fall risk comments: 6. Patient on Blood Thinner: None 7. History of Hypertension: Y 8. Opioid Therapy greater than 6 weeks: Y Opiate Contract Signed: 11/30/15 9. Risk Assessment Tool Provided: HIGH RISK-17 10. Functional Assessment Tool: 11. Recreational Drug Use: Never Drug Type: Tobacco Use: Never Smoker Tobacco Type: Amount or Packs/day: How Many Years: Alcohol Use: No Frequency: Quant:
--- NOTE | 2020-09-23 11:56 | HPC ---
[facility] [address] [place] [address] PAIN MANAGEMENT CONSULTATION Name: VIKTORIA MILAN Jeff Room #: REG ZAYDA Ish.#: [id number] Admission: 09/21/20 Attend Phys: Jillian Child Discharge: Date of : 53 Report #: [id number] THIS REPORT FOR: cc: Chris Page MD, John L. MD Hocker,Jillian JHAVERI ~ DATE OF SERVICE: 09/21/2020 CHIEF COMPLAINT: Chronic low back pain, post-laminectomy syndrome with radiculopathy. HISTORY OF PRESENT ILLNESS: This is a 64-year-old gentleman who returns for medication management today and renewals of medication. The patient recently saw Dr. Owen Live in June and underwent a transforaminal steroid injection. The patient did not give me a percentage of relief, but felt that it was able to decrease his pains for the first 2 months. His pain has gradually returned back to his baseline. He does report epidurals in the past have been more beneficial and some not as beneficial as the one he had in June. He was thankful for the injection though to help relieve some of his discomfort in his low back and left leg that radiates into his buttock. Today, he reports a pain score of 3/10 complaining his pain as an aching, tingly sensation that is occasionally sharp. His pain is worse with prolonged sitting and standing and in the morning, he believes the medication as well as activity and stretching are beneficial. The patient does report doing Pilates and physical therapy twice a week, continues to stretch every day, and has been walking. Since the weather has improved, he is starting to ride his bike more frequently and he feels that is beneficial as well. Unfortunately, since the last visit, we did rotate the patient's long-acting pain medication from OxyContin to Xtampza due to insurance issues. The patient has been taking this medication for the past month, Xtampza 9 mg tablets twice a day. He does complain of a slight headache today. He is unsure if it is weather related due to pollen and weather changes or if it is related to his medication. He would like to continue the Xtampza, which requires no axu-gq-wysaiz for him currently to see if it continues to provide good pain relief and if his headache resolves. The patient also reports he has recently started meloxicam for arthritic issues of his left thumb. He plays the guitar and that has been bothersome. He believes the meloxicam has been beneficial. ALLERGIES: LATEX. CURRENT LIST OF MEDICATIONS: Meloxicam 7.5 mg daily, Xtampza ER 9 mg b.i.d., oxycodone 5/325 b.i.d. p.r.n., omeprazole, Adderall, nortriptyline, propranolol, Crestor, Cozaar, Zaditor, Nasonex, and Claritin. [address] [address] PAIN MANAGEMENT CONSULTATION Name: VIKTORIA MILAN Room #: WAQAS Colón#: [id number] Admission: 09/21/20 Attend Phys: Jillian Child Discharge: Date of : 53 Report #: [id number] PQRS: 1. He has arthritic changes in his upper and lower extremity and his hands. Denies any rheumatoid arthritis. 2. Height is 5 feet 4 inches, weight is 154, BMI is 26. 3. Vital signs 144/89, pulse is 57, respirations 16, oxygen sat is 100. 4. Pain score is 3/10. 5. Denies dizziness, does not need help walking or standing, has not fallen in the last 3 months. 6. The patient is not on any blood thinners, but does take medicine for hypertension. 7. Opioid therapy is greater than 6 weeks; therefore, an opioid signed contract is on the chart. Risk assessment is high. Functional assessment is 26/70. 8. Recreational drug use, he denies. He is not a smoker and does not drink alcohol. According to the prescription monitoring system, he is due to fill his medications today. His morphine mEq according to the CDC guidelines is 45 MME. We will collect a random drug screen on this patient today. PHYSICAL EXAMINATION: GENERAL: This is an alert and orientated, very pleasant 64-year-old gentleman, who appears in no distress and appears his stated age, rating his pain score today at 3/10. HEENT: Normocephalic, atraumatic. Extraocular eye muscles are intact. He is wearing a mask. BACK: He has scoliosis without kyphosis. He has previous scars in his lumbar region. Tenderness in his lumbosacral region that radiates into his left buttock. Positive straight leg raising. His lower extremity strength is symmetrical at 5/5. IMPRESSION: 1. Post-laminectomy syndrome with radiculopathy on from the L3-L4 dermatomal distribution. 2. Scoliosis. 3. Lumbar spondylosis. 4. Failed back syndrome. 5. Complex medical management under terms of written opioid agreement. We reviewed the fact that opiate medications are being used to provide analgesia adequate to support activities of daily living, not attempting to achieve a specific pain score on the 0-10 Visual Analog Scale. The current opiate medications are providing sufficient analgesia to allow the patient to participate in activities of daily living. The patient is not exhibiting any aberrant behavior suggestive of drug diversion. The patient is not having any adverse reactions to medications. The patient is not suffering from daytime [facility] [address] [place] [address] PAIN MANAGEMENT CONSULTATION Name: VIKTORIA MILAN Room #: REG CLLouie M.R.#: [id number] Admission: 09/21/20 Attend Phys: Jillian Child Discharge: Date of : 53 Report #: [id number] somnolence or mental acuity changes. The patient is managing opiate-induced constipation with appropriate nnrn-ifs-jkoqpzq agents and dietary considerations. The patient was counseled on concern for caution with operating a motor vehicle while using opiate medications. A physical exam was performed and the patient's functional status was evaluated. All patients with back pain were advised against the bed rest greater than 4 days and were advised to return to normal activities. Pain score assessment was noted and the treatment plan was reviewed with the patient. All current medications, both prescribed and OTC were reviewed and reconciled on the electronic medical record. Tobacco screening was accomplished and smoking cessation was advised when indicated. BMI was noted and diet/exercise modification was recommended for all patients following outside normal parameters. I reviewed with the patient today their responsibilities to safeguard prescription medications, reviewed their responsibility to utilize medications only as prescribed by the physician. They are to seek and receive pain medications only from 1 physician group ( [facility]). They are to use 1 pharmacy and keep the clinic informed if they change pharmacies. Their responsibilities include making followup visits in a timely fashion and to avoid abrupt discontinuation of medication usage. Their responsibilities further include bringing their medications (bottles from the pharmacy with residual pills) to the visit for possible confirmation of pill counts and the patient understands it is their responsibility to submit to random drug screens to ensure both that the medications prescribed are present, and that no other controlled substances are present. All prescriptions provided today were generated electronically. PLAN: 1. We discussed treatment options with the patient today. Due to insurance issues, we changed his medication in the last month from OxyContin to Xtampza 9 mg b.i.d. The patient has found that his pain is still well controlled, though he is experiencing a headache. He does have issues with headaches from time to time. The patient is unsure if it was medication related or weather related. We will continue him on his Xtampza currently for the next few months. If the patient determines his headache is not resolving, he may call our office, we may try OxyContin again depending on patel or may rotate him to short-acting medications of oxycodone 10/[address] Owen Live will send his medications electronically for a total of 3-month supply. 3. We did collect a random drug screen on this patient today. He reports taking his medication this morning. Time spent with the patient in consultation, reviewing recent studies and clinical notes and physician reports, [place] [address] PAIN MANAGEMENT CONSULTATION Name: VIKTORIA MILAN Room #: REG Louie Colón#: [id number] Admission: 09/21/20 Attend Phys: Jillian Child Discharge: Date of : 53 Report #: [id number] findings, and medical documentation to determine treatment was 16 minutes. Time spent in preparation for appointment reviewing prescription monitoring reports, reviewing previous records and proposed treatment options and reviewing current list of medications was 5 minutes. Time spent preparing and sending electronic prescriptions with collaborating physician, Dr. Owen Live, and documentation of visit and plan of treatment was 7 minutes. Total time spent 28 minutes. <ELECTRONICALLY SIGNED> By: Jillian Child 09/23/20 1156 [id number] 1758 Jillian Child /klaus
== END ==
LOC: PAIN 07:34
PROVIDERS: ATTEND Clinical Nurse Specialist Adult Health
DX: M96.1 Postlaminectomy syndrome, not elsewhere classified (principal); G89.29 Other chronic pain; M47.26 Other spondylosis with radiculopathy, lumbar region; Z79.891 Long term (current) use of opiate analgesic

== ENCOUNTER → 2020-12-10 | Outpatient (CLI) | payer BC, OTHER ==
[~2020-12-10] VITALS: Ht 160 cm; Wt 69.7 kg
[2020-12-10 09:10] VITALS: BP 155/84
--- NOTE | 2020-12-10 09:14 | NUR ---
Pain Clinic Assessment: 1. History of Osteoarthritis: Right Lower Extremity Right Upper Extremity RIGHT KNEE RIGHT HAND History of Rheumatoid Arthritis: Not Applicable 2. Height: 5 ft. 3 in. 160.0 cm. Weight: 153.6 lb. oz. 69.672 kg. Patient's BMI: 27.2 3. Vital Signs: BP: 155/84 Pulse: 52 Resp: 16 Temp: 02 Sat: 100 ECG Mon: 4. Pain Intensity: 6 TO 7 5. Fall Risk: Dizziness: N Needs help standing or walking: N Fallen in the last 3 months: N Fall risk comments: 6. Patient on Blood Thinner: None 7. History of Hypertension: Y 8. Opioid Therapy greater than 6 weeks: Y Opiate Contract Signed: 11/30/15 9. Risk Assessment Tool Provided: HIGH RISK-17 10. Functional Assessment Tool: 11. Recreational Drug Use: Never Drug Type: Tobacco Use: Never Smoker Tobacco Type: Amount or Packs/day: How Many Years: Alcohol Use: No Frequency: Quant:
== END | disposition home or self-care (01) ==
LOC: PAIN 08:25
PROVIDERS: ATTEND Anesthesiology Pain Medicine
DX: M54.16 Radiculopathy, lumbar region (principal); G89.29 Other chronic pain; M96.1 Postlaminectomy syndrome, not elsewhere classified; I10 Essential (primary) hypertension; M19.90 Unspecified osteoarthritis, unspecified site; Z98.890 Other specified postprocedural states; Z79.899 Other long term (current) drug therapy; Z91.040 Latex allergy status

== ENCOUNTER → 2021-03-12 | Outpatient (CLI) | payer BC, OTHER ==
[~2021-03-12] VITALS: Ht 152.4 cm; Wt 67.2 kg
[2021-03-12 08:22] VITALS: BP 136/89
--- NOTE | 2021-03-12 08:27 | NUR ---
Pain Clinic Assessment: 1. History of Osteoarthritis: Right Lower Extremity Right Upper Extremity RIGHT KNEE RIGHT HAND History of Rheumatoid Arthritis: Not Applicable 2. Height: 5 ft. 2 in. 152.4 cm. Weight: 148.2 lb. oz. 67.223 kg. Patient's BMI: 28.9 3. Vital Signs: BP: 136/89 Pulse: 57 Resp: 16 Temp: 02 Sat: 98 ECG Mon: 4. Pain Intensity: 3(W/MED) TO 8(IN AM) 5. Fall Risk: Dizziness: N Needs help standing or walking: N Fallen in the last 3 months: N Fall risk comments: 6. Patient on Blood Thinner: None 7. History of Hypertension: Y 8. Opioid Therapy greater than 6 weeks: Y Opiate Contract Signed: 11/30/15 9. Risk Assessment Tool Provided: HIGH RISK-17 10. Functional Assessment Tool: 11. Recreational Drug Use: Never Drug Type: Tobacco Use: Never Smoker Tobacco Type: Amount or Packs/day: How Many Years: Alcohol Use: No Frequency: Quant:
== END ==
LOC: PAIN 06:47
PROVIDERS: ATTEND Anesthesiology Pain Medicine
DX: G89.29 Other chronic pain (principal); M47.26 Other spondylosis with radiculopathy, lumbar region; M96.1 Postlaminectomy syndrome, not elsewhere classified

== ENCOUNTER → 2021-04-05 | Outpatient (CLI) | payer BC, OTHER ==
[~2021-04-05] VITALS: Ht 157.5 cm; Wt 67.8 kg
[2021-04-05 14:38] VITALS: BP 125/87
--- NOTE | 2021-04-05 14:48 | NUR ---
Pain Clinic Assessment: 1. History of Osteoarthritis: Right Lower Extremity Right Upper Extremity RIGHT KNEE RIGHT HAND History of Rheumatoid Arthritis: Not Applicable 2. Height: 5 ft. 2 in. 157.5 cm. Weight: 149.4 lb. oz. 67.767 kg. Patient's BMI: 27.3 3. Vital Signs: BP: 125/87 Pulse: 65 Resp: 14 Temp: 02 Sat: 100 ECG Mon: 4. Pain Intensity: 3 5. Fall Risk: Dizziness: N Needs help standing or walking: N Fallen in the last 3 months: N Fall risk comments: 6. Patient on Blood Thinner: None 7. History of Hypertension: Y 8. Opioid Therapy greater than 6 weeks: Y Opiate Contract Signed: 11/30/15 9. Risk Assessment Tool Provided: HIGH RISK-17 10. Functional Assessment Tool: 11. Recreational Drug Use: Never Drug Type: Tobacco Use: Never Smoker Tobacco Type: Amount or Packs/day: How Many Years: Alcohol Use: No Frequency: Quant:
== END | disposition home or self-care (01) ==
LOC: PAIN 10:48
PROVIDERS: ATTEND Anesthesiology Pain Medicine
DX: M79.18 Myalgia, other site (principal); M48.02 Spinal stenosis, cervical region; M47.892 Other spondylosis, cervical region; I10 Essential (primary) hypertension; M19.90 Unspecified osteoarthritis, unspecified site; Z98.890 Other specified postprocedural states; Z79.899 Other long term (current) drug therapy; Z91.040 Latex allergy status

== ENCOUNTER → 2021-05-31 | Outpatient (CLI) | payer BC, OTHER ==
[~2021-05-31] VITALS: Ht 157.5 cm; Wt 68.9 kg
[2021-05-31 14:16] VITALS: BP 140/86
--- NOTE | 2021-05-31 14:20 | NUR ---
Pain Clinic Assessment: 1. History of Osteoarthritis: Right Lower Extremity Right Upper Extremity RIGHT KNEE RIGHT HAND History of Rheumatoid Arthritis: Not Applicable 2. Height: 5 ft. 2 in. 157.5 cm. Weight: 152.0 lb. oz. 68.947 kg. Patient's BMI: 27.8 3. Vital Signs: BP: 140/86 Pulse: 59 Resp: Temp: 02 Sat: 97 ECG Mon: 4. Pain Intensity: 5 5. Fall Risk: Dizziness: N Needs help standing or walking: N Fallen in the last 3 months: N Fall risk comments: 6. Patient on Blood Thinner: None 7. History of Hypertension: Y 8. Opioid Therapy greater than 6 weeks: Y Opiate Contract Signed: 11/30/15 9. Risk Assessment Tool Provided: HIGH RISK-17 10. Functional Assessment Tool: 11. Recreational Drug Use: Never Drug Type: Tobacco Use: Never Smoker Tobacco Type: Amount or Packs/day: How Many Years: Alcohol Use: No Frequency: Quant:
== END | disposition home or self-care (01) ==
LOC: PAIN 08:54
PROVIDERS: ATTEND Anesthesiology Pain Medicine
DX: M54.16 Radiculopathy, lumbar region (principal); G89.29 Other chronic pain; M96.1 Postlaminectomy syndrome, not elsewhere classified; I10 Essential (primary) hypertension; M19.90 Unspecified osteoarthritis, unspecified site; Z98.890 Other specified postprocedural states; Z79.899 Other long term (current) drug therapy; Z91.040 Latex allergy status